=== PATIENT | male | born 1955 | race African-American/Black ===

== ENCOUNTER 2021-12-01 11:16 | Inpatient (IN) | payer OTHER, SELFPAY ==
[2021-12-01] VITALS (10 sets, daily range): BP systolic 100–130; BP diastolic 64–88; PULSE 80–113; RESP 14–31; TEMP 36.4–36.7; O2SAT 98–100; BMI 19.6
--- NOTE | ~2021-12-01 | CT_ITS ---
EXAMINATION: CT lumbar spine wo con DATE: 12/01/2021 12:00 INDICATION: Low back pain post fall TECHNIQUE: Computed tomography (CT) of the lumbar spine was performed without intravenous contrast. A utomated exposure control and iterative reconstruction technique were employed. The dose-length produ ct was 955.31 mGy-cm. COMPARISON: None FINDINGS: 10 degrees lower lumbar levoscoliosis. 3 mm anterolisthesis L4 on L5 and 5 mm retrolisthesis L5 on S1 . Vertebral body heights are normal. No fracture. Severe disc height loss at L5-S1. Moderate disc hei ght loss at L4-L5 and mild disc height loss at T12-L1, L2-L3 and L3-L4. Diffuse patchy sclerosis of t he bones consistent with metastatic disease. Mild bilateral sacroiliac osteoarthritis. The following disc levels are specifically discussed: T12-L1: The disc does not extend beyond the endplate margin. There is mild right and moderate left fa cet joint osteoarthritis. There is no neural foraminal stenosis. There is no central canal stenosis. L1-L2: Disc is mildly bulging. There is left and moderate right facet joint osteoarthritis. There is no neural foraminal stenosis. There is normal central canal stenosis. L2-L3: Disc is bulging. There is mild left and moderate right facet joint osteoarthritis. There is mi ld bilateral neural foraminal stenosis. There is mild central canal stenosis. L3-L4: Disc is bulging. There is hypertrophy of the ligamentum flavum. There is moderate bilateral fa cet joint osteoarthritis. There is mild right and minimal left neural foraminal stenosis. There is mi ld central canal stenosis. L4-L5: Disc is bulging. There is severe bilateral facet joint osteoarthritis. There is moderate right and mild to moderate left neural foraminal stenosis. There is mild central canal stenosis. L5-S1: Disc is bulging. There is mild bilateral facet joint osteoarthritis. There is moderate bilater al neural foraminal stenosis. There is mild central canal stenosis. IMPRESSION: 1. Moderate to severe lumbar spondylosis. No acute osseous abnormality. 2. Extensive patchy sclerosis of the bones consistent with widespread metastatic disease. Reviewed, dictated and finalized at location A. R ASSOCIATE IMPRESSION: 1. Moderate to severe lumbar spondylosis. No acute osseous abnormality. 2. Extensive patchy sclerosis of the bones consistent with widespread metastati c disease.
--- NOTE | ~2021-12-01 | CT_ITS ---
EXAMINATION: CT pelvis wo con DATE: 12/01/2021 12:00 INDICATION: Hip pain post fall from an open window. TECHNIQUE: High resolution computed tomography (CT) of the [place] was performed without intravenous co ntrast. Additional sagittal and coronal reconstructions were performed. Automated exposure control an d iterative reconstruction technique were employed. The dose-length product was 245.24 mGy-cm. COMPARISON: None FINDINGS: No fracture. There are scattered patchy sclerosis throughout the visualized axial and appendicular sk [place]leton consistent with widespread metastatic disease, suspect prostate cancer. Change of prior prosta tectomy. Correlate with clinical history. Mild bilateral hip osteoarthritis. 3 mm anterolisthesis L4 on L5 and 5 mm retrolisthesis L5 on S1. Severe lower lumbar spondylosis. The bladder and visualized p ortion of the bowels are unremarkable. No free fluid in the pelvis. No pathologically enlarged abdomi nal or pelvic lymphadenopathy. IMPRESSION: 1. No acute osseous abnormality. 2. Diffuse patchy sclerosis of the bones suspicious for osseous metastatic disease. There appear to b e changes of prior prostatectomy and would correlate with clinical/surgical history. 3. Severe lower lumbar spondylosis. Reviewed, dictated and finalized at location A. BAILER IMPRESSION: 1. No acute osseous abnormality. 2. Diffuse patchy sclerosis of the bones suspicious for osseous metastatic dise ase. There appear to be changes of prior prostatectomy and would correlate with clinical/surgical history. 3. Severe lower lumbar spondylosis.
--- NOTE | ~2021-12-01 | XR_ITS ---
EXAMINATION: XR chest 2V DATE: 12/01/2021 13:06 INDICATION: Low back pain, possible metastasis TECHNIQUE: AP and lateral views of the chest are obtained. COMPARISON: None available FINDINGS: There is a possible 1.8 cm nodule of the right midlung zone and 1.3 cm nodule of the left l ower lung zone. There is diffuse patchy vertebral body sclerosis. There is no pleural effusion or pne umothorax. The cardiomediastinal silhouette is normal. IMPRESSION: 1. Possible lung nodules, infectious versus malignant. Follow-up with dedicated chest CT is recommend ed. 2. Patchy vertebral body sclerosis, likely metastatic disease. Reviewed, dictated and finalized at location A. CE COPY SELECTOR IMPRESSION: 1. Possible lung nodules, infectious versus malignant. Follow-up with dedicated chest CT is recommended. 2. Patchy vertebral body sclerosis, likely metastatic disease.
--- NOTE | ~2021-12-01 | CT_ITS ---
EXAMINATION: CT diagnostic chest w con DATE: 12/01/2021 15:05 INDICATION: Possible lung nodules reported on December 01, 2021 2 view chest TECHNIQUE: Computed tomography (CT) of the chest was performed with 75 cc Omnipaque 350 intravenous c ontrast. Automated exposure control and iterative reconstruction technique were employed. Exam dose: 149.19 mGy-cm total exam DLP. COMPARISON: December 01, 2021 2 view chest FINDINGS: No pulmonary infiltrate or consolidation or pulmonary mass lesion. Normal heart size. There is coronary artery calcification. No thoracic aortic aneurysm or dissection. No hilar or mediastinal mass lesion or lymphadenopathy. There is extensive patchy osteosclerosis of the axial skeleton, including sternum, ribs, spine, likel y due to extensive prostate cancer diastases Prominent degenerative disc disease in the lower cervical spine. IMPRESSION: Extensive patchy osteosclerotic metastatic disease, likely secondary to prostate carcino ma No pulmonary mass lesion Reviewed, dictated and finalized at Location A. Reviewed, dictated and finalized at location B. DRILL OPERATOR IMPRESSION: Extensive patchy osteosclerotic metastatic disease, likely seconda ry to prostate carcinoma No pulmonary mass lesion
--- NOTE | ~2021-12-01 | NM_ITS ---
NM bone scan whole body INDICATION: Metastatic prostate cancer TECHNIQUE: The patient was injected with 26.6 mCi Tc 99m HDP. Gamma camera images of the region of i nterest and whole body were obtained. COMPARISON: Chest, pelvis and lumbar spine CT dated 12/01/2021 FINDINGS: There are multiple focal areas of abnormal radiotracer uptake in the sternum, multiple bila teral ribs, the lumbar spine, the pelvis, right forearm, right humerus proximally and proximal femurs bilaterally, consistent with osseous metastases. There are multiple symmetric areas of polyarticular joint uptake, consistent with degenerative joint disease. IMPRESSION: 1: Multifocal abnormal radiotracer uptake as described above, consistent with osseous metastases. Reviewed, dictated and finalized at location B. DING CLEANER
[2021-12-01] MEDS: KETOROLAC (*BKC) 60 MG/2 ML VIAL IM (12:09)
[2021-12-01] MEDS: methocarbamoL 500 MG TABLET PO (12:09)
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
[2021-12-01 13:43] LABS: Basophils Percent Auto 0.3 % (0.2-1.2); Hemoglobin 13.3 g/dL (14.0-18.0); Immature Granulocyte Absolute 0.03 K/mm3 (0.00-0.031); Immature Granulocyte Percent A 0.5 % (0-0.5); Lymphocytes Percent Auto 14.3 % (18.3-44.2); Mean Corpuscular HGB Conc 34.1 g/dl (32-36); Mean Corpuscular Hemoglobin 30.2 pg (26-34); Mean Corpuscular Volume 88.6 fl (80-100); Mean Platelet Volume 9.7 fl (7.4-10.4); Monocytes Absolute Auto 0.6 K/mm3 (0.1-0.6); Monocytes Percent Auto 10.1 % (2.6-8.5); Neutrophils Absolute Auto 4.7 K/mm3 (1.3-6.7); Neutrophils Percent Auto 74.8 % (45.5-73.1); Platelet Count Result 179 k/mm3 (150-375); Red Cell Distribution Width 14.3 % (11.5-14.5); White Blood Count 6.3 K/mm3 (4.5-10.0)
[2021-12-01 14:10] LABS: Alanine Aminotransferase 12 U/L (4-50); Alkaline Phosphatase 368 U/L (38-126); Anion Gap 9 mmol/L (8-16); Aspartate Amino Transferase 99 U/L (17-59); Bilirubin,Total 1.3 mg/dL (0.2-1.3); Blood Urea Nitrogen 22 mg/dL (9-20); Carbon Dioxide 25 mmol/L (22-30); Chloride 94 mmol/L (98-107); Estimated CRCL calculation 92 ml/min; Estimated Glomerular Filt Rate > 60; Glucose 117 mg/dL (65-110); Magnesium 1.6 mg/dL (1.6-2.3); Potassium 4.8 mmol/L (3.4-5.0); Sodium 128 mmol/L (137-145)
[2021-12-01 14:19] LABS: Add Urine Microscopic? YES; Appearance Urine Clear (Clear); Bacteria Urine Trace /hpf; Bilirubin Urine Negative (Negative); Blood Urine Negative (Negative); Color Urine Amber (Yellow); Glucose Urine UA Negative (Negative); Ketones Urine 1+ mg/dL (Negative); Leukocyte Esterase Ur Negative LEU/UL (Negative); Mucus Urine Moderate /lpf; Nitrate Urine Negative (Negative); Protein Urine 2+ mg/dL (Negative); RBC Urine 0-2 /hpf (0-2); Specific Grav Ur 1.027 (1.001-1.035); Squamous Epithelial Cell Urine Rare /hpf (Few); WBC Urine 0-3 /hpf
[2021-12-01] MEDS: SODIUM CHLORIDE 0.9% IV 1,000 ML 999 ML IV CONT (15:23)
[2021-12-01] MEDS: SODIUM CHLORIDE 0.9% IV 1,000 ML 125 ML IV CONT (18:17)
--- NOTE | 2021-12-01 18:33 | ADMGEN ---
This patient, Cristopher Nice, was admitted to [facility] Surg Room 333-01. Patient/family oriented to hospital policies and general routines including ID bracelet, bed and alarms, visiting hours, pain management, procedures, bathroom and other care routines, personal items, smoking policy, room service/diet, and visiting hours. Information on how to activate the Rapid Response Team has been discussed. Patient/Family are encouraged to report perceived risks to care and to ask questions if they do not understand what they are told or what they should do.
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
[2021-12-02] MEDS: HYDROmorphone HCL INJ (*CRX) 1 MG/ML SYR IV PUSH ×5 (02:30→21:49)
[2021-12-02] MEDS: SODIUM CHLORIDE 0.9% IV 1,000 ML 125 ML IV CONT ×3 (02:30→19:27)
[2021-12-02 04:04] LABS: Anion Gap 8 mmol/L (8-16); Blood Urea Nitrogen 27 mg/dL (9-20); Calcium 8.4 mg/dL (8.4-10.2); Carbon Dioxide 22 mmol/L (22-30); Chloride 99 mmol/L (98-107); Estimated CRCL calculation 80 ml/min; Estimated Glomerular Filt Rate > 60; Glucose 103 mg/dL (65-110); Potassium 4.5 mmol/L (3.4-5.0); Sodium 129 mmol/L (137-145)
[2021-12-02 06:00] VITALS: BP 106/71; PULSE 98; RESP 16; TEMP 36.6; O2SAT 94
[2021-12-02 07:20] LABS: Basophils Percent Auto 0.2 % (0.2-1.2); Hemoglobin 11.3 g/dL (14.0-18.0); Immature Granulocyte Absolute 0.03 K/mm3 (0.00-0.031); Immature Granulocyte Percent A 0.5 % (0-0.5); Lymphocytes Absolute Auto 1.08 K/mm3 (0.9-3.2); Lymphocytes Percent Auto 19.5 % (18.3-44.2); Mean Corpuscular HGB Conc 33.2 g/dl (32-36); Mean Corpuscular Volume 90.2 fl (80-100); Mean Platelet Volume 9.5 fl (7.4-10.4); Monocytes Absolute Auto 0.7 K/mm3 (0.1-0.6); Monocytes Percent Auto 11.9 % (2.6-8.5); Neutrophils Absolute Auto 3.8 K/mm3 (1.3-6.7); Neutrophils Percent Auto 67.9 % (45.5-73.1); Platelet Count Result 163 k/mm3 (150-375); Red Blood Count 3.77 M/mm3 (4.6-6.20); Red Cell Distribution Width 14.6 % (11.5-14.5); White Blood Count 5.5 K/mm3 (4.5-10.0)
[2021-12-02 08:00] VITALS: BP 116/62; PULSE 85; RESP 20; TEMP 36.6; O2SAT 96
[2021-12-02 09:07] LABS: Alanine Aminotransferase 9 U/L (4-50); Albumin Level 3.4 g/dL (3.5-5.1); Alkaline Phosphatase 264 U/L (38-126); Anion Gap 3 mmol/L (8-16); Aspartate Amino Transferase 56 U/L (17-59); Bilirubin,Total 0.8 mg/dL (0.2-1.3); Blood Urea Nitrogen 19 mg/dL (9-20); Calcium 8.5 mg/dL (8.4-10.2); Carbon Dioxide 25 mmol/L (22-30); Chloride 99 mmol/L (98-107); Estimated CRCL calculation 92 ml/min; Estimated Glomerular Filt Rate > 60; Glucose 110 mg/dL (65-110); Lactate Dehydrogenase 1265 U/L (313-618); Lipase 21 U/L (23-300); Magnesium 1.6 mg/dL (1.6-2.3); Potassium 4.4 mmol/L (3.4-5.0); Sodium 127 mmol/L (137-145)
[2021-12-02 09:20] LABS: CRP 30.4 mg/dL (<1.0)
[2021-12-02 10:58] LABS: Ferritin > 2000.00 ng/mL (11.1-264)
--- NOTE | 2021-12-02 13:28 | PM.IMPN ---
Progress Note: A&P Assessment and Plan (1) Acute hyponatremia: Code(s): E87.1 - Hypo-osmolality and hyponatremia Status: Acute Assessment and Plan: Continue with gentle IV fluid resuscitation and encourage appetite Patient currently has a poor appetite and reports loss of weight, approximately 40 lb Repeat basic metabolic panel in the morning hyponatremia may be related to his cancer diagnosis? Consult registered dietitian for further evaluation (2) Metastatic disease: Qualifiers: Area of secondary neoplastic involvement: bone Qualified Code(s): C79.51 - Secondary malignant neoplasm of bone Code(s): C79.9 - Secondary malignant neoplasm of unspecified site Status: Acute Assessment and Plan: Oncology has been consulted, Dr. Spears-appreciate assistance and recommendations Continue with IV and oral pain medication. (3) Back pain: Qualifiers: Back pain laterality: bilateral Back pain location: low back pain Chronicity: acute Sciatica presence: without sciatica Qualified Code(s): M54.50 - Low back pain, unspecified Code(s): M54.9 - Dorsalgia, unspecified Status: Acute Assessment and Plan: Continue with pain medication Discussed nonpharmacological pain management (4) Marijuana abuse: Code(s): F12.10 - Cannabis abuse, uncomplicated Status: Acute Assessment and Plan: Discussed marijuana usage, patient currently smokes daily (5) Physical debility: Code(s): R53.81 - Other malaise Status: Acute Assessment and Plan: PT/OT eval and treat Patient reports increasing generalized weakness. Subjective Date/time seen: 12/02/21 13:28 Patient was evaluated this morning at bedside. He appears to be developmentally delayed or have poor understanding of current diagnosis. Family is involved in his care. Patient reports he lives at home alone. Patient continues on IV fluids, pain management and pending oncology services. Consult registered dietitian to evaluate the patient's nutritional status. Patient reports that he has lost 40 lb within the past 6 months. Patient also reports marijuana usage daily, discussed usage. Patient denies any chest pain, shortness of breath. He does report feeling weak, therefore PT/OT was ordered to eval and treat. No significant events overnight. Review of Systems Review of Systems: All systems reviewed & are unremarkable except as noted in HPI and below Exam Narrative: General: Pt is alert awake and oriented x3, no acute distress, cachectic appearance Lungs/Chest: Trachea central Clear BS B/L No respiratory distress or use of accessory muscle, Cardiac: RRR. Normal S1 S2. No murmurs Circulation: Pedal pulses are intact and symmetrical. Abdomen: Normal bowel sounds. Soft. NT. ND. Extremities: No clubbing, cyanosis Warm. no edema in lower extremities, atraumatic, strength 4/5 in all extremities Neurologic: Follows commands. Moves all 4 extremities PERRL AO x3 Skin: No Rash or lesions Objective Data Vital Signs Vital Signs: Vital Signs - 24 hr 12/01/21 15:13 12/01/21 16:16 12/01/21 16:31 Temperature Pulse Rate 96 95 95 Respiratory Rate 18 14 24 H Blood Pressure 117/79 119/79 105/80 Pulse Oximetry 98 98 98 12/01/21 17:01 12/01/21 17:56 12/01/21 18:41 Temperature 97.7 F Pulse Rate 95 93 86 Respiratory Rate 31 H 18 18 Blood Pressure 109/79 109/72 117/77 Pulse Oximetry 99 99 100 12/01/21 22:00 12/02/21 06:00 12/02/21 08:00 Temperature 97.6 F 97.9 F 97.8 F Pulse Rate 80 98 85 Respiratory Rate 14 16 20 Blood Pressure 100/64 106/71 116/62 Pulse Oximetry 99 94 96 Intake/Output Intake/Output: Intake & Output 11/29/21 11/30/21 12/01/21 12/02/21 23:59 23:59 23:59 23:59 Intake Total 1000 2440 Balance 1000 2440 Meds/Results Medications: Active Medications Generic Name Dose Route Start Last Admin Trade Name Freq PRN Reason Stop Dose Ad
[2021-12-02 14:48] VITALS: O2SAT 96
[2021-12-02 15:06] VITALS: BMI 19.6
[2021-12-02 15:11] LABS: Basophils Percent Auto 0.2 % (0.2-1.2); Hematocrit 33.1 % (42.0-52.0); Hemoglobin 11.1 g/dL (14.0-18.0); Immature Granulocyte Absolute 0.04 K/mm3 (0.00-0.031); Immature Granulocyte Percent A 0.6 % (0-0.5); Lymphocytes Absolute Auto 0.91 K/mm3 (0.9-3.2); Lymphocytes Percent Auto 14.1 % (18.3-44.2); Mean Corpuscular HGB Conc 33.5 g/dl (32-36); Mean Corpuscular Hemoglobin 29.9 pg (26-34); Mean Corpuscular Volume 89.2 fl (80-100); Mean Platelet Volume 9.7 fl (7.4-10.4); Monocytes Absolute Auto 0.8 K/mm3 (0.1-0.6); Monocytes Percent Auto 12.1 % (2.6-8.5); Neutrophils Absolute Auto 4.7 K/mm3 (1.3-6.7); Platelet Count Result 174 k/mm3 (150-375); Red Blood Count 3.71 M/mm3 (4.6-6.20); Red Cell Distribution Width 14.5 % (11.5-14.5); White Blood Count 6.4 K/mm3 (4.5-10.0)
[2021-12-02 15:32] LABS: Anion Gap 8 mmol/L (8-16); Blood Urea Nitrogen 13 mg/dL (9-20); Calcium 8.4 mg/dL (8.4-10.2); Carbon Dioxide 22 mmol/L (22-30); Chloride 99 mmol/L (98-107); Estimated CRCL calculation 108 ml/min; Estimated Glomerular Filt Rate > 60; Glucose 112 mg/dL (65-110); Potassium 4.2 mmol/L (3.4-5.0); Sodium 129 mmol/L (137-145)
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
[2021-12-02 19:40] LABS: Sodium Urine Random 123 meq/L
[2021-12-02 20:25] LABS: Prostate Specific Antigen > 100.0 ng/mL (< OR = 4.0)
[2021-12-02 20:55] VITALS: PULSE 93; O2SAT 97
[2021-12-02 22:00] VITALS: BP 107/65; PULSE 93; RESP 20; TEMP 36.4; O2SAT 98
[2021-12-03] MEDS: HYDROmorphone HCL INJ (*CRX) 1 MG/ML SYR IV PUSH ×4 (02:23→19:59)
[2021-12-03] MEDS: SODIUM CHLORIDE 0.9% IV 1,000 ML 125 ML IV CONT ×3 (05:05→22:06)
[2021-12-03 06:00] VITALS: BP 94/61; PULSE 82; RESP 20; TEMP 36; O2SAT 98
[2021-12-03 07:21] LABS: Magnesium 1.7 mg/dL (1.6-2.3); Phosphorus 3.1 mg/dL (2.5-4.5)
[2021-12-03 08:00] VITALS: PULSE 94; RESP 18; O2SAT 97
[2021-12-03] MEDS: HYDROcodone/acetaminophen (*CRX) 5-325 MG TABLET 1 TAB PO ×3 (10:50→22:05)
--- NOTE | 2021-12-03 11:56 | PM.IMPN ---
Progress Note: A&P Assessment and Plan (1) Acute hyponatremia: Code(s): E87.1 - Hypo-osmolality and hyponatremia Status: Acute Assessment and Plan: Continue with gentle IV fluid resuscitation and encourage appetite Patient currently has a poor appetite and reports loss of weight, approximately 40 lb Repeat basic metabolic panel in the morning hyponatremia may be related to his cancer diagnosis? Consult registered dietitian for further evaluation (2) Metastatic disease: Qualifiers: Area of secondary neoplastic involvement: bone Qualified Code(s): C79.51 - Secondary malignant neoplasm of bone Code(s): C79.9 - Secondary malignant neoplasm of unspecified site Status: Acute Assessment and Plan: Oncology has been consulted, Dr. Spears-appreciate assistance and recommendations Continue with IV and oral pain medication. (3) Back pain: Qualifiers: Back pain laterality: bilateral Back pain location: low back pain Chronicity: acute Sciatica presence: without sciatica Qualified Code(s): M54.50 - Low back pain, unspecified Code(s): M54.9 - Dorsalgia, unspecified Status: Acute Assessment and Plan: Continue with pain medication Discussed nonpharmacological pain management (4) Marijuana abuse: Code(s): F12.10 - Cannabis abuse, uncomplicated Status: Acute Assessment and Plan: Discussed marijuana usage, patient currently smokes daily (5) Physical debility: Code(s): R53.81 - Other malaise Status: Acute Assessment and Plan: PT/OT eval and treat Patient reports increasing generalized weakness. Subjective Date/time seen: 12/03/21 11:56 patient was evaluated this morning. Eating. BN significant amount of pain. Medication was due for Dilaudid. Added [place] to help decide pain. Patient reported he spoke to Oncology yesterday and agreeable to plan of care and follow-up as an outpatient. During this hospitalization his main concern is pain management. Patient reports he slept okay last night. No significant events overnight reported by the RN. Reviewed Oncology consultation. Review of Systems Review of Systems: All systems reviewed & are unremarkable except as noted in HPI and below Exam Narrative: General: Pt is alert awake and oriented x3, no acute distress, cachectic appearance Lungs/Chest: Trachea central Clear BS B/L No respiratory distress or use of accessory muscle, Cardiac: RRR. Normal S1 S2. No murmurs Circulation: Pedal pulses are intact and symmetrical. Abdomen: Normal bowel sounds. Soft. NT. ND. Extremities: No clubbing, cyanosis Warm. no edema in lower extremities, atraumatic, strength 4/5 in all extremities Neurologic: Follows commands. Moves all 4 extremities PERRL AO x3 Skin: No Rash or lesions Objective Data Vital Signs Vital Signs: Vital Signs - 24 hr 12/02/21 14:48 12/02/21 20:55 12/02/21 22:00 Temperature 97.5 F L Pulse Rate 93 93 Respiratory Rate 20 Blood Pressure 107/65 Pulse Oximetry 96 97 98 12/03/21 06:00 Temperature 96.8 F L Pulse Rate 82 Respiratory Rate 20 Blood Pressure 94/61 L Pulse Oximetry 98 Intake/Output Intake/Output: Intake & Output 11/30/21 12/01/21 12/02/21 12/03/21 23:59 23:59 23:59 23:59 Intake Total 1000 3440 1750 Output Total 800 Balance 1000 3440 950 Meds/Results Medications: Active Medications Generic Name Dose Route Start Last Admin Trade Name Freq PRN Reason Stop Dose Admin Acetaminophen 650 mg 12/03/21 09:36 Acetaminophen 325 Mg Tablet PO Q4H PRN Mild Pain (1-3) or Fever Hydrocodone Bitart/Acetaminophen 1 tab 12/03/21 09:35 12/03/21 10:50 Hydrocodone/Acetaminophen (*Crx) 5-325 Mg Tablet PO 1 tab Q4H PRN Administration Pain Rated 4-6 Hydromorphone HCl 1 mg 12/01/21 16:20 12/03/21 06:49 Hydromorphone Hcl Inj (*Crx) 1 Mg/Ml Syr IV PUSH 1 mg Q4H PRN Administration
--- NOTE | 2021-12-03 12:58 | PCPTNOTE ---
Attempted PT evaluation this date however pt declined. He reports that he is having a lot of pain, RN was notified. Will attempt at a later date/time.
[2021-12-03 13:10] VITALS: BP 104/62; PULSE 94; RESP 18; TEMP 36.3; O2SAT 97
--- NOTE | 2021-12-03 14:50 | PCOTNOTE ---
Attempted to see patient for OT evaluation. Patient refuses any/all activity at this time due to being in pain. Will continue to attempt.
[2021-12-03 22:00] VITALS: BP 112/75; PULSE 95; RESP 18; TEMP 36.9; O2SAT 100
[2021-12-04] MEDS: HYDROmorphone HCL INJ (*CRX) 1 MG/ML SYR IV PUSH ×4 (01:07→20:13)
[2021-12-04] MEDS: HYDROcodone/acetaminophen (*CRX) 5-325 MG TABLET 1 TAB PO ×2 (03:19→10:17)
[2021-12-04 06:00] VITALS: BP 94/60; PULSE 78; RESP 18; TEMP 36.5; O2SAT 100
[2021-12-04 08:00] VITALS: PULSE 78; RESP 18; O2SAT 100
--- NOTE | 2021-12-04 12:09 | PM.IMPN ---
Progress Note: A&P Assessment and Plan (1) Acute hyponatremia: Code(s): E87.1 - Hypo-osmolality and hyponatremia Status: Acute Assessment and Plan: Continue with gentle IV fluid resuscitation and encourage appetite Patient currently has a poor appetite and reports loss of weight, approximately 40 lb Repeat basic metabolic panel in the morning hyponatremia may be related to his cancer diagnosis? Consult registered dietitian for further evaluation (2) Metastatic disease: Qualifiers: Area of secondary neoplastic involvement: bone Qualified Code(s): C79.51 - Secondary malignant neoplasm of bone Code(s): C79.9 - Secondary malignant neoplasm of unspecified site Status: Acute Assessment and Plan: Oncology has been consulted, Dr. Spears-appreciate assistance and recommendations Continue with IV and oral pain medication. Pending Nuc med bone scan on Sunday the . (3) Back pain: Qualifiers: Back pain laterality: bilateral Back pain location: low back pain Chronicity: acute Sciatica presence: without sciatica Qualified Code(s): M54.50 - Low back pain, unspecified Code(s): M54.9 - Dorsalgia, unspecified Status: Acute Assessment and Plan: Continue with pain medication Discussed nonpharmacological pain management (4) Marijuana abuse: Code(s): F12.10 - Cannabis abuse, uncomplicated Status: Acute Assessment and Plan: Discussed marijuana usage, patient currently smokes daily (5) Physical debility: Code(s): R53.81 - Other malaise Status: Acute Assessment and Plan: PT/OT eval and treat Patient reports increasing generalized weakness. Subjective Date/time seen: 12/04/21 12:09 Brief encounter with the patient this morning. He reports continued pain. We will attempt to increase medications. Pending bone scan tomorrow with Oncology. No acute events overnight reported by the RN. Patient continues to receive Dilaudid and [place]. Patient may benefit from hospice consult Review of Systems Review of Systems: All systems reviewed & are unremarkable except as noted in HPI and below Exam Narrative: General: Pt is alert awake and oriented x3, no acute distress, cachectic appearance Lungs/Chest: Trachea central Clear BS B/L No respiratory distress or use of accessory muscle, Cardiac: RRR. Normal S1 S2. No murmurs Circulation: Pedal pulses are intact and symmetrical. Abdomen: Normal bowel sounds. Soft. NT. ND. Extremities: No clubbing, cyanosis Warm. no edema in lower extremities, atraumatic, strength 4/5 in all extremities, mild pain to palpation to lumbar region Neurologic: Follows commands. Moves all 4 extremities PERRL AO x3 Skin: No Rash or lesions Objective Data Vital Signs Vital Signs: Vital Signs - 24 hr 12/03/21 13:10 12/03/21 22:00 12/04/21 06:00 Temperature 97.4 F L 98.4 F 97.7 F Pulse Rate 94 95 78 Respiratory Rate 18 18 18 Blood Pressure 104/62 112/75 94/60 L Pulse Oximetry 97 100 100 12/04/21 08:00 Temperature Pulse Rate 78 Respiratory Rate 18 Blood Pressure Pulse Oximetry 100 Intake/Output Intake/Output: Intake & Output 12/01/21 12/02/21 12/03/21 12/04/21 23:59 23:59 23:59 23:59 Intake Total 1000 3440 4690 550 Output Total 2050 750 Balance 1000 3440 2640 -200 Meds/Results Medications: Active Medications Generic Name Dose Route Start Last Admin Trade Name Freq PRN Reason Stop Dose Admin Acetaminophen 650 mg 12/03/21 09:36 Acetaminophen 325 Mg Tablet PO Q4H PRN Mild Pain (1-3) or Fever Hydrocodone Bitart/Acetaminophen 1 tab 12/03/21 09:35 12/04/21 10:17 Hydrocodone/Acetaminophen (*Crx) 5-325 Mg Tablet PO 1 tab Q4H PRN Administration Pain Rated 4-6 Hydromorphone HCl 1 mg 12/01/21 16:20 12/04/21 07:18 Hydromorphone Hcl Inj (*Crx) 1 Mg/Ml Syr IV PUSH 1 mg Q4H PRN Administration Pain Rated 7-10 Sodium Chlorid
[2021-12-04] MEDS: SODIUM CHLORIDE 0.9% IV 1,000 ML 125 ML IV CONT (12:51)
[2021-12-04 13:00] LABS: Hematocrit 33.5 % (42.0-52.0); Hemoglobin 10.7 g/dL (14.0-18.0); Mean Corpuscular HGB Conc 31.9 g/dl (32-36); Mean Corpuscular Hemoglobin 30.2 pg (26-34); Mean Corpuscular Volume 94.6 fl (80-100); Mean Platelet Volume 9.7 fl (7.4-10.4); Platelet Count Result 190 k/mm3 (150-375); Red Blood Count 3.54 M/mm3 (4.6-6.20); Red Cell Distribution Width 14.6 % (11.5-14.5); White Blood Count 5.8 K/mm3 (4.5-10.0)
[2021-12-04 13:14] LABS: Anion Gap 8 mmol/L (8-16); Blood Urea Nitrogen 7 mg/dL (9-20); Calcium 8.6 mg/dL (8.4-10.2); Carbon Dioxide 23 mmol/L (22-30); Chloride 101 mmol/L (98-107); Estimated CRCL calculation 108 ml/min; Estimated Glomerular Filt Rate > 60; Glucose 131 mg/dL (65-110); Potassium 3.4 mmol/L (3.4-5.0); Sodium 132 mmol/L (137-145)
[2021-12-04 14:00] VITALS: BP 119/68; PULSE 98; RESP 16; TEMP 35.9; O2SAT 100
[2021-12-04] MEDS: HYDROcodone/acetaminophen (*CRX) 10-325 MG TABLET 1 TAB PO ×2 (16:55→22:33)
[2021-12-04 20:00] VITALS: PULSE 98; RESP 16; O2SAT 100
[2021-12-04 22:00] VITALS: BP 123/78; PULSE 91; RESP 18; TEMP 37.4; O2SAT 100
[2021-12-05] MEDS: HYDROcodone/acetaminophen (*CRX) 10-325 MG TABLET 1 TAB PO ×2 (02:17→11:19)
[2021-12-05 05:02] LABS: Osmolality, Urine 445 mOsm/kg (50-1200)
[2021-12-05 06:00] VITALS: BP 109/65; PULSE 87; RESP 18; TEMP 36.9; O2SAT 100
[2021-12-05 06:26] LABS: Basophils Percent Auto 0.3 % (0.2-1.2); Eosinophils Percent Auto 0.3 % (0-4.4); Hematocrit 31.2 % (42.0-52.0); Hemoglobin 10.2 g/dL (14.0-18.0); Immature Granulocyte Absolute 0.03 K/mm3 (0.00-0.031); Immature Granulocyte Percent A 0.5 % (0-0.5); Lymphocytes Absolute Auto 1.33 K/mm3 (0.9-3.2); Lymphocytes Percent Auto 23.2 % (18.3-44.2); Mean Corpuscular HGB Conc 32.7 g/dl (32-36); Mean Corpuscular Hemoglobin 29.9 pg (26-34); Mean Corpuscular Volume 91.5 fl (80-100); Mean Platelet Volume 9.2 fl (7.4-10.4); Monocytes Absolute Auto 0.6 K/mm3 (0.1-0.6); Monocytes Percent Auto 9.6 % (2.6-8.5); Neutrophils Absolute Auto 3.8 K/mm3 (1.3-6.7); Neutrophils Percent Auto 66.1 % (45.5-73.1); Platelet Count Result 219 k/mm3 (150-375); Red Blood Count 3.41 M/mm3 (4.6-6.20); Red Cell Distribution Width 14.6 % (11.5-14.5); White Blood Count 5.7 K/mm3 (4.5-10.0)
[2021-12-05 06:39] LABS: Alanine Aminotransferase 12 U/L (4-50); Albumin Level 2.9 g/dL (3.5-5.1); Alkaline Phosphatase 161 U/L (38-126); Anion Gap 5 mmol/L (8-16); Aspartate Amino Transferase 29 U/L (17-59); Bilirubin,Total 0.6 mg/dL (0.2-1.3); Blood Urea Nitrogen 5 mg/dL (9-20); Calcium 8.2 mg/dL (8.4-10.2); Carbon Dioxide 25 mmol/L (22-30); Chloride 101 mmol/L (98-107); Estimated CRCL calculation 131 ml/min; Estimated Glomerular Filt Rate > 60; Glucose 113 mg/dL (65-110); Magnesium 1.4 mg/dL (1.6-2.3); Phosphorus 3.3 mg/dL (2.5-4.5); Potassium 3.6 mmol/L (3.4-5.0); Sodium 131 mmol/L (137-145)
[2021-12-05 08:00] VITALS: PULSE 87; RESP 18; O2SAT 100
[2021-12-05] MEDS: HYDROmorphone HCL INJ (*CRX) 1 MG/ML SYR IV PUSH (08:11)
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
[2021-12-05] MEDS: MAGNESIUM SULF 4 GM/WATER100ML 4 GM/100 ML BAG IVPB (12:22)
--- NOTE | 2021-12-05 12:29 | PCNFU ---
Nutrition Follow-Up Complete: Severe malnutrition in the context of chronic illness related to metastatic disease as evidenced by 22% weight loss in 1 month, severe wasting of subcutaneous fat (orbital fat pads, buccal fat pads, triceps) and severe muscle mass loss (wasting of temporalis muscle, trapezius muscle, deltoid mucle, and interosseous muscle) Goal: Pt to meet 75% of estimated nutritional needs patient is progressing towards goal. No new goal at this time. Pt current nutrition is a regular diet. Last recorded weight is 63.9 kg. Recommend re-weighing pt. prior to discharge. Bowel Motility: +BM 12/03/2021 Labs Reviewed: Hgb 10.2, Hct 31.2, Alb 2.9, Na 131, BUN 5, Cr 0.40, Glu 113 Meds Noted: Casodex, [place], Zofran, Dilaudid Skin: No skin break down at this time. WNL. Additional Notes: Pt was diagnosed with malnutrition. Pt. has severe wasting of subcutaneous fat and severe muscle mass loss. He is receiving compact TID providing an additional 220 calories and 9 grams of protein as well as frozen nutritional treat BID providing an additional 300 calories and 9 grams of protein in addition to ordering three meals per day. Pt. has a poor appetite for the most part refusing three meals and eating anywhere from 10-100% of meals but does his best to eat at meal times. May be beneficial to start an appetite stimulant if intake does not increase. Will monitor labs, medication, wt, and reported intake every 3 days
--- NOTE | 2021-12-05 13:01 | WPDONCPN ---
Progress Note: A/P - Additional Plan Metastatic prostate cancer with bone involvement. Patient is status post prostatectomy 5 years ago. Bone scan finding showed multifocal abnormal radiotracer uptake consistent with bone metastasis involving multiple bilateral ribs, lumbar spine, pelvis, right forearm: Right humerus and femur bilaterally. PSA came back elevated more than 100. We will start him on Casodex 50 mg daily and will start Lupron as an outpatient. Patient will follow-up with us as an outpatient. Bone metastasis. Patient will be referred to Radiation therapy based on his symptoms. - Time Spent With Patient Total time spent is greater than 50% in coordination of care (as documented) at patient's floor/unit and/or counseling patient: 15 - 25 minutes Subjective Interval history: Metastatic prostate cancer Review of Systems - Review of Systems Patient is more awake and alert today. He has been complaining of generalized pain. Denies any bleeding including melena hematochezia. No fevers and chills. No other new complaints. - Neurologic Reports system reviewed and no additional complaints, except as documented, Reports hearing normal, Denies focal weakness, Denies numbness, Denies weakness Exam Vital signs: Temp Pulse Resp BP Pulse Ox 36.9 C 87 18 109/65 100 12/05/21 06:00 12/05/21 08:00 12/05/21 08:00 12/05/21 06:00 12/05/21 08:00 Narrative: Lungs are clear to auscultation bilaterally Cardiovascular regular rate rhythm no murmurs Abdomen soft nontender nondistended bowel sounds are positive Extremities no edema PN: Objective Data - Labs CBC & Chem 7: 12/05/21 06:11 12/05/21 06:11 Labs: Laboratory Results - last 24 hr 12/02/21 12/04/21 12/04/21 17:19 12:53 12:53 WBC 5.8 RBC 3.54 L Hgb 10.7 L Hct 33.5 L MCV 94.6 D MCH 30.2 MCHC 31.9 L RDW 14.6 H Plt Count 190 MPV 9.7 Immature Gran % (Auto) Neut % (Auto) Lymph % (Auto) Winston % (Auto) Eos % (Auto) Baso % (Auto) Lymph # (Auto) Winston # (Auto) Eos # (Auto) Baso # (Auto) Abs Immat Gran (auto) Absolute Neuts (auto) Absolute Nucleated RBC Nucleated RBC % Sodium 132 L Potassium 3.4 Chloride 101 Carbon Dioxide 23 Anion Gap 8 BUN 7 L D Creatinine 0.50 L Estim Creat Clear Calc 108 Estimated GFR > 60 Glucose 131 H Calcium 8.6 Phosphorus Magnesium Total Bilirubin AST ALT Alkaline Phosphatase Total Protein Albumin Urine Osmolality 445 12/05/21 12/05/21 06:11 06:11 WBC 5.7 RBC 3.41 L Hgb 10.2 L Hct 31.2 L MCV 91.5 MCH 29.9 MCHC 32.7 RDW 14.6 H Plt Count 219 MPV 9.2 Immature Gran % (Auto) 0.5 Neut % (Auto) 66.1 Lymph % (Auto) 23.2 Winston % (Auto) 9.6 H Eos % (Auto) 0.3 Baso % (Auto) 0.3 Lymph # (Auto) 1.33 Winston # (Auto) 0.6 Eos # (Auto) 0.0 Baso # (Auto) 0.0 Abs Immat Gran (auto) 0.03 Absolute Neuts (auto) 3.8 Absolute Nucleated RBC 0.0 Nucleated RBC % 0.0 Sodium 131 L Potassium 3.6 Chloride 101 Carbon Dioxide 25 Anion Gap 5 L BUN 5 L Creatinine 0.40 L Estim Creat Clear Calc 131 Estimated GFR > 60 Glucose 113 H Calcium 8.2 L Phosphorus 3.3 Magnesium 1.4 L Total Bilirubin 0.6 AST 29 ALT 12 Alkaline Phosphatase 161 H Total Protein 6.0 L Albumin 2.9 L Urine Osmolality
[2021-12-05 14:00] VITALS: BP 124/46; PULSE 94; RESP 20; TEMP 36.3; O2SAT 94
[2021-12-05] MEDS: fentaNYL (*CRX) 25 MCG PATCH TRANSDERM (14:15)
[2021-12-05] MEDS: BICALUTAMIDE (*CHEMO) 50 MG TABLET PO (14:15)
[2021-12-05] MEDS: oxyCODONE/ACETAMINOPHEN (*CRX) 5-325 MG TABLET 1 TABLET PO ×2 (14:15→20:03)
[2021-12-05 16:38] LABS: Glucose Point of Care 156 mg/dl (65-105)
[2021-12-05 21:47] VITALS: BP 109/66; PULSE 105; RESP 16; TEMP 37.8; O2SAT 99
[2021-12-06] MEDS: oxyCODONE/ACETAMINOPHEN (*CRX) 5-325 MG TABLET 1 TABLET PO ×3 (00:11→10:44)
[2021-12-06 03:01] VITALS: O2SAT 96
[2021-12-06 06:00] VITALS: BP 122/79; PULSE 82; RESP 16; TEMP 36.3; O2SAT 97
[2021-12-06 08:41] LABS: Basophils Percent Auto 0.6 % (0.2-1.2); Eosinophils Percent Auto 0.3 % (0-4.4); Hematocrit 33.4 % (42.0-52.0); Immature Granulocyte Percent A 1.6 % (0-0.5); Lymphocytes Absolute Auto 1.53 K/mm3 (0.9-3.2); Lymphocytes Percent Auto 24.8 % (18.3-44.2); Mean Corpuscular HGB Conc 32.9 g/dl (32-36); Mean Corpuscular Hemoglobin 29.6 pg (26-34); Mean Corpuscular Volume 89.8 fl (80-100); Mean Platelet Volume 9.1 fl (7.4-10.4); Monocytes Absolute Auto 0.6 K/mm3 (0.1-0.6); Monocytes Percent Auto 9.4 % (2.6-8.5); Neutrophils Absolute Auto 3.9 K/mm3 (1.3-6.7); Neutrophils Percent Auto 63.3 % (45.5-73.1); Platelet Count Result 256 k/mm3 (150-375); Red Blood Count 3.72 M/mm3 (4.6-6.20); Red Cell Distribution Width 14.6 % (11.5-14.5); White Blood Count 6.2 K/mm3 (4.5-10.0)
[2021-12-06 09:01] LABS: Alanine Aminotransferase 14 U/L (4-50); Albumin Level 3.2 g/dL (3.5-5.1); Alkaline Phosphatase 172 U/L (38-126); Anion Gap 6 mmol/L (8-16); Aspartate Amino Transferase 29 U/L (17-59); Bilirubin,Total 0.6 mg/dL (0.2-1.3); Blood Urea Nitrogen 9 mg/dL (9-20); Calcium 8.9 mg/dL (8.4-10.2); Carbon Dioxide 27 mmol/L (22-30); Chloride 101 mmol/L (98-107); Estimated CRCL calculation 108 ml/min; Estimated Glomerular Filt Rate > 60; Glucose 140 mg/dL (65-110); Magnesium 1.4 mg/dL (1.6-2.3); Sodium 134 mmol/L (137-145)
[2021-12-06] MEDS: BICALUTAMIDE (*CHEMO) 50 MG TABLET PO (09:03)
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
--- NOTE | 2022-02-21 09:55 | PC.NURSE ---
Brianda spoke with next of kin via telephone; will talk to patient and call back on 02/04/22. No phone call returned. Will dispose bottle of Calcium.
== END 2021-12-06 13:00 | disposition home or self-care (01) | DRG 343 ==
LOC: ANHED 16:20 → ANH3MEDSUR 17:16
PROVIDERS: Internal Medicine Hematology & Oncology; Nurse Practitioner; Nurse Practitioner Family; Admitting Provider Internal Medicine; Emergency Provider Nurse Practitioner Adult Health; PCP Internal Medicine; Visit Provider Nurse Practitioner
DX: C79.51 Secondary malignant neoplasm of bone (principal); E87.1 Hypo-osmolality and hyponatremia; M54.50 Low back pain, unspecified; F12.10 Cannabis abuse, uncomplicated; Z23 Encounter for immunization; Z85.46 Personal history of malignant neoplasm of prostate; Z85.53 Personal history of malignant neoplasm of renal pelvis; Z90.49 Acquired absence of other specified parts of digestive tract
CPT/HCPCS: 36415; 71046; 71260; 72131; 72192; 78306; 80048; 80053; 81001; 82728; 82948; 83615; 83690; 83735; 83935; 84100; 84153; 84300; 84443; 85025; 85027; 86140; 90471; 90653; 96361; 96372; 96374; 96375; 96376; 97161; 97165; 99285; A9270; A9561; G0008; G0378; G0379; J0131; J1170; J1885; J3475; J7030; Q9967

== ENCOUNTER 2022-09-01 02:22 | Inpatient (IN) | payer OTHER, SELFPAY ==
[2022-09-01] VITALS (21 sets, daily range): BP systolic 89–117; BP diastolic 66–86; PULSE 97–106; RESP 16–23; TEMP 36.7–37.1; O2SAT 95–100; BMI 19.2; BMI 20.5
--- NOTE | ~2022-09-01 | CT_ITS ---
EXAMINATION: CT chest abdomen pelvis w con DATE: 09/01/2022 06:57 INDICATION: General body pain. Metastatic cancer. TECHNIQUE: Computed tomography (CT) of the chest, abdomen, and pelvis was performed with 100 mL Omnip aque 350 intravenous contrast. Automated exposure control and iterative reconstruction technique were employed. The dose-length product was 519.67 mGy-cm. COMPARISON: Chest CT 12/01/2021, pelvis CT 12/01/2021 FINDINGS: CHEST CT: There is mild scarring at right lung apex. There is mild atelectasis bilaterally. No pleural effusion . The heart size is normal. There are coronary artery calcifications. There is a small pericardial ef fusion. There is widespread sclerosis involving all bones. There is severe cervical spondylosis and m oderate thoracic spondylosis. ABDOMEN/PELVIS CT: The liver, gallbladder, spleen, pancreas, adrenal glands, and kidneys are normal. There are no dilate d loops of bowel. The appendix is not visualized. There is mild right retrocrural and right external iliac lymphadenopathy. For example, a right external iliac node measures 15 x 10 mm. There is widespr ead sclerosis involving all bones. There is severe lumbar spondylosis. IMPRESSION: 1. Worsened widespread sclerosis involving all bones, consistent with metastatic disease. 2. Mild right retrocrural and right external iliac lymphadenopathy, worsened from 12/01/2021, consiste nt with metastatic disease. 3. Small pericardial effusion. Reviewed, dictated and finalized at location A. [employer] IMPRESSION: 1. Worsened widespread sclerosis involving all bones, consistent with metastati c disease. 2. Mild right retrocrural and right external iliac lymphadenopathy, worsened fr om 12/01/2021, consistent with metastatic disease. 3. Small pericardial effusion.
--- NOTE | 2022-09-01 04:01 | ECG_ITS ---
Measurements Intervals [place] Rate: 108 P: 69 WV: 132 QRS: 2 QRSD: 84 T: 50 QT: 338 QTc: 453 Interpretive Statements SINUS TACHYCARDIA DELAYED PRECORDIAL R/S TRANSITION BASELINE ARTIFACT- I, III, AVR, AVL ABNORMAL ECG NO PREVIOUS ECG AVAILABLE FOR COMPARISON Electronically Signed On 09-01-2022 16:25:37 [employer] by Dante Cary D.O.
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
[2022-09-01 07:09] LABS: Basophils Percent Auto 0.4 % (0.2-1.2); Hematocrit 24.3 % (42.0-52.0); Immature Granulocyte Absolute 0.06 K/mm3 (0.00-0.031); Immature Granulocyte Percent A 1.1 % (0-0.5); Lymphocytes Absolute Auto 1.07 K/mm3 (0.9-3.2); Mean Corpuscular HGB Conc 32.9 g/dl (32-36); Mean Corpuscular Hemoglobin 29.3 pg (26-34); Mean Platelet Volume 10.8 fl (7.4-10.4); Monocytes Absolute Auto 0.4 K/mm3 (0.1-0.6); Monocytes Percent Auto 7.4 % (2.6-8.5); Neutrophils Absolute Auto 4.1 K/mm3 (1.3-6.7); Neutrophils Percent Auto 72.1 % (45.5-73.1); Platelet Count Result 192 k/mm3 (150-375); Red Blood Count 2.73 M/mm3 (4.6-6.20); Red Cell Distribution Width 18.4 % (11.5-14.5); White Blood Count 5.6 K/mm3 (4.5-10.0)
[2022-09-01 07:10] LABS: Lactic Acid 1.1 mmol/L (0.7-2.0)
--- NOTE | 2022-09-01 07:11 | PC.NURSE ---
Yovani [phone]
[2022-09-01 07:14] LABS: Alanine Aminotransferase 9 U/L (6-50); Albumin Level 3.8 g/dL (3.5-5.1); Alkaline Phosphatase 311 U/L (38-126); Anion Gap 12 mmol/L (8-16); Aspartate Amino Transferase 118 U/L (17-59); Blood Urea Nitrogen 11 mg/dL (9-20); Calcium 8.8 mg/dL (8.4-10.2); Carbon Dioxide 23 mmol/L (22-30); Chloride 92 mmol/L (98-107); Estimated Glomerular Filt Rate > 60; Glucose 103 mg/dL (65-110); Magnesium 1.5 mg/dL (1.6-2.3); Potassium 4.8 mmol/L (3.4-5.0); Sodium 127 mmol/L (137-145); Troponin I 0.014 ng/mL (0.000-0.034)
[2022-09-01 07:17] LABS: SARS-CoV-2 RNA PCR Negative
[2022-09-01] MEDS: MAGNESIUM SULF 2 GM/WATER 50ML 2 GM/50 ML BAG IVPB (08:06)
[2022-09-01] MEDS: HYDROmorphone HCL INJ (*CRX) 1 MG/ML SYR 0.5 MG IV PUSH (08:06)
[2022-09-01] MEDS: SODIUM CHLORIDE 0.9% IV 1,000 ML 75 ML IV CONT (10:55)
--- NOTE | 2022-09-01 12:57 | ADMGEN ---
This patient, Cristopher Nice, was admitted to 3 [facility] Surg Room 315-01. Patient/family oriented to hospital policies and general routines including ID bracelet, bed and alarms, visiting hours, pain management, procedures, bathroom and other care routines, personal items, smoking policy, room service/diet, and visiting hours. Information on how to activate the Rapid Response Team has been discussed. Patient/Family are encouraged to report perceived risks to care and to ask questions if they do not understand what they are told or what they should do.
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
--- NOTE | 2022-09-01 14:42 | PCDIET ---
Brief nutrition note: Screened for MST 4 with weight loss >34 lbs. Not able to assess patient yet before the weekend. Will follow up in 3 days for further assessment and continue to monitor.
[2022-09-01 14:48] LABS: Hematocrit 25.7 % (42.0-52.0); Hemoglobin 7.9 g/dL (14.0-18.0)
[2022-09-01 18:09] LABS: Anion Gap 13 mmol/L (8-16); Blood Urea Nitrogen 13 mg/dL (9-20); Calcium 8.9 mg/dL (8.4-10.2); Carbon Dioxide 21 mmol/L (22-30); Chloride 95 mmol/L (98-107); Estimated CRCL calculation 108 ml/min; Estimated Glomerular Filt Rate > 60; Glucose 111 mg/dL (65-110); Potassium 4.3 mmol/L (3.4-5.0); Sodium 129 mmol/L (137-145)
[2022-09-01] MEDS: fentaNYL (*CRX) 25 MCG PATCH TRANSDERM (18:45)
[2022-09-01 21:11] LABS: Hematocrit 26.1 % (42.0-52.0); Hemoglobin 8.3 g/dL (14.0-18.0)
[2022-09-02] VITALS (15 sets, daily range): BP systolic 101–126; BP diastolic 51–91; PULSE 82–107; RESP 16–20; TEMP 36.2–37.6; O2SAT 98–100
[2022-09-02 03:41] LABS: Basophils Percent Auto 0.4 % (0.2-1.2); Immature Granulocyte Absolute 0.05 K/mm3 (0.00-0.031); Lymphocytes Absolute Auto 1.23 K/mm3 (0.9-3.2); Lymphocytes Percent Auto 24.5 % (18.3-44.2); Mean Corpuscular HGB Conc 32.7 g/dl (32-36); Mean Corpuscular Hemoglobin 29.8 pg (26-34); Mean Corpuscular Volume 91.2 fl (80-100); Mean Platelet Volume 9.2 fl (7.4-10.4); Monocytes Absolute Auto 0.5 K/mm3 (0.1-0.6); Monocytes Percent Auto 10.7 % (2.6-8.5); Neutrophils Absolute Auto 3.2 K/mm3 (1.3-6.7); Neutrophils Percent Auto 63.4 % (45.5-73.1); Platelet Count Result 146 k/mm3 (150-375); Red Blood Count 2.28 M/mm3 (4.6-6.20); Red Cell Distribution Width 18.3 % (11.5-14.5)
[2022-09-02 03:52] LABS: Hemoglobin 6.8 g/dL (14.0-18.0)
[2022-09-02 03:53] LABS: Hematocrit 20.8 % (42.0-52.0)
[2022-09-02 03:54] LABS: Alanine Aminotransferase 10 U/L (6-50); Albumin Level 3.6 g/dL (3.5-5.1); Alkaline Phosphatase 256 U/L (38-126); Anion Gap 12 mmol/L (8-16); Aspartate Amino Transferase 66 U/L (17-59); Bilirubin,Total 0.6 mg/dL (0.2-1.3); Blood Urea Nitrogen 13 mg/dL (9-20); Calcium 8.8 mg/dL (8.4-10.2); Carbon Dioxide 22 mmol/L (22-30); Chloride 95 mmol/L (98-107); Estimated CRCL calculation 108 ml/min; Estimated Glomerular Filt Rate > 60; Glucose 110 mg/dL (65-110); Magnesium 1.9 mg/dL (1.6-2.3); Potassium 4.1 mmol/L (3.4-5.0); Sodium 129 mmol/L (137-145)
--- NOTE | 2022-09-02 05:25 | PC.NURSE ---
Weight entered in for patient was off by about ~20 lbs. Pt. bed zeroed, all extra blankets removed and pt. reweighed. New weight entered into system.
[2022-09-02 07:07] LABS: Sodium Urine Random 48 meq/L
[2022-09-02 07:27] LABS: Hematocrit 21.3 % (42.0-52.0)
[2022-09-02 08:03] LABS: Hemoglobin 6.7 g/dL (14.0-18.0)
[2022-09-02 12:21] LABS: Iron 57 ug/dL (49-181)
[2022-09-02 12:21] LABS: Lactate Dehydrogenase 728 U/L (120-246)
[2022-09-02 12:30] LABS: Percent Iron Saturation 29 % (20-50)
--- NOTE | 2022-09-02 13:15 | PM.IMPN ---
Progress Note: A&P Assessment and Plan (1) Acute hyponatremia: Code(s): E87.1 - Hypo-osmolality and hyponatremia Status: Acute Assessment and Plan: the patient has chronically low sodium And baseline appears 127-134. sodium was 127 on admission. This may be secondary to metastatic cancer presumed poor oral intake continue with NS at 75 mL/hour Trend sodium. 09/02 sodium 129. Urine sodium 48 and urine Osmo pending TSH within normal limits (2) Metastatic disease: Qualifiers: Area of secondary neoplastic involvement: bone Qualified Code(s): C79.51 - Secondary malignant neoplasm of bone Code(s): C79.9 - Secondary malignant neoplasm of unspecified site Status: Acute Assessment and Plan: patient was diagnosed with prostate cancer approximately 5 years and was treated with prostatectomy. In January of this year he presented to the hospital for hip pain,where CT spine showed extensive sclerosis of the bone consistent with widespread metastatic disease and CT chest showed extensive osteo sclerotic metastatic disease without pulmonary mass. Patient reports his oncologist is Dr. Spears and most recent notes show he has not been seen since his last hospitalization in November, however this is not consistent with what was stated upon admission, although he does report seeing some DrEh in [place]. We discussed referral to hospice extensively. The patient reports he is interested in discussing this further, however he would like to speak with his oncologist prior to making this decision. Code status is now DNR. continue pain management with fentanyl patch 25 mcg Q 72 hours, p.r.n. acetaminophen, p.r.n. IV Dilaudid, and will add p.r.n. oxycodone IR he may benefit from Marinol as he has lost a lot of weight and smoking marijuana helps him some. However the patient would need to find a license provider who can help him get medical marijuana. (3) Physical debility: Code(s): R53.81 - Other malaise Status: Acute Assessment and Plan: consulted dietary for supplements. The patient has lost 80 lb in the last year. started on ensure enlive for now. consult PT OT (4) Marijuana abuse: Code(s): F12.10 - Cannabis abuse, uncomplicated Status: Chronic Assessment and Plan: the patient has been using marijuana for pain management. (5) Hypomagnesemia: Code(s): E83.42 - Hypomagnesemia Status: Acute Assessment and Plan: magnesium level 1.5 on admission, patient presented with increasing weakness. He received 2 g IV Mag sulfate x1 09/02 magnesium level 1.9, Replace as necessary. (6) Anemia: Qualifiers: Anemia type: unspecified type Qualified Code(s): D64.9 - Anemia, unspecified Code(s): D64.9 - Anemia, unspecified Status: Acute Assessment and Plan: presumed chronic and secondary to metastatic cancer and malnutrition. He denies stool changes. Hemoglobin 7.9 and hematocrit 25.7% on admission 09/02 Repeat H&H 6.7 and 21.3%. I discussed with the patient risks benefits of transfusion and he is agreeable at this time. Will transfuse 1 unit of PRBCs leukocyte reduced and repeat H&H in 2 hours. Check iron panel, LDH, ferritin, B12 and folate (7) Back pain: Qualifiers: Back pain laterality: bilateral Back pain location: low back pain Chronicity: acute Sciatica presence: without sciatica Qualified Code(s): M54.50 - Low back pain, unspecified Code(s): M54.9 - Dorsalgia, unspecified Status: Chronic Assessment and Plan: Secondary to metastatic disease With bone involvement. Continue pain medication as above. Plan code status: DNR Disposition: pending further information Time Spent With Patient Time with patient: 15 - 25 minutes ( more than 50% of time discussing goals of care and hospice services) Subjective Date/time seen: 09/02/22 13:15 patient
[2022-09-02] MEDS: HYDROmorphone HCL INJ (*CRX) 1 MG/ML SYR 0.5 MG IV PUSH ×2 (13:19→20:17)
[2022-09-02] MEDS: SODIUM CHLORIDE 0.9% IV 250 ML 30 ML IV CONT (14:45)
[2022-09-02] MEDS: TUBING, BLOOD PLUM PUMP TUBING 1 EACH XX (14:45)
[2022-09-02 15:58] LABS: Ferritin > 2000.00 ng/mL (11.1-264)
[2022-09-02 19:49] LABS: Hematocrit 25.9 % (42.0-52.0); Hemoglobin 8.3 g/dL (14.0-18.0)
[2022-09-02 19:57] LABS: Lactate Dehydrogenase 640 U/L (120-246)
[2022-09-02] MEDS: oxyCODONE HCL (*CRX) 5 MG TAB IR PO (21:38)
[2022-09-02 22:08] LABS: Iron 88 ug/dL (49-181)
[2022-09-03] VITALS (9 sets, daily range): BP systolic 101–135; BP diastolic 73–83; PULSE 96–118; RESP 16–20; TEMP 36.1–36.9; O2SAT 97–100
[2022-09-03 00:19] LABS: Ferritin > 2000.00 ng/mL (11.1-264)
[2022-09-03] MEDS: SODIUM CHLORIDE 0.9% IV 1,000 ML 75 ML IV CONT (01:44)
[2022-09-03 05:50] LABS: Hematocrit 24.8 % (42.0-52.0); Hemoglobin 7.8 g/dL (14.0-18.0); Mean Corpuscular HGB Conc 31.5 g/dl (32-36); Mean Corpuscular Volume 92.2 fl (80-100); Mean Platelet Volume 9.4 fl (7.4-10.4); Platelet Count Result 150 k/mm3 (150-375); Red Blood Count 2.69 M/mm3 (4.6-6.20); Red Cell Distribution Width 17.6 % (11.5-14.5); White Blood Count 5.5 K/mm3 (4.5-10.0)
[2022-09-03 06:02] LABS: Alanine Aminotransferase 11 U/L (6-50); Albumin Level 3.3 g/dL (3.5-5.1); Alkaline Phosphatase 211 U/L (38-126); Anion Gap 8 mmol/L (8-16); Aspartate Amino Transferase 42 U/L (17-59); Bilirubin,Total 0.5 mg/dL (0.2-1.3); Blood Urea Nitrogen 14 mg/dL (9-20); Calcium 8.2 mg/dL (8.4-10.2); Carbon Dioxide 25 mmol/L (22-30); Chloride 97 mmol/L (98-107); Estimated CRCL calculation 97 ml/min; Estimated Glomerular Filt Rate > 60; Glucose 138 mg/dL (65-110); Potassium 3.9 mmol/L (3.4-5.0); Sodium 130 mmol/L (137-145)
[2022-09-03] MEDS: HYDROmorphone HCL INJ (*CRX) 1 MG/ML SYR 0.5 MG IV PUSH (06:32)
[2022-09-03 07:08] LABS: Folic Acid 5.1 ng/mL (2.76->20)
--- NOTE | 2022-09-03 07:46 | PCPTNOTE ---
Attempted PT evaluation this date however pt refused due to pain and is comfy in bed right now . Will continue to attempt.
--- NOTE | 2022-09-03 07:50 | PCOTNOTE ---
Attempted OT evaluation this date however patient refused due to pain and is comfy in bed right now . Will attempt at later time.
[2022-09-03] MEDS: LORazepam INJ (*CRX) 2 MG/ML VIAL 1 MG IV PUSH (09:12)
[2022-09-03] MEDS: ACETAMINOPHEN 325 MG TABLET 650 MG PO (09:13)
[2022-09-03] MEDS: LIDOCAINE 5% PATCH 1 PATCH TRANSDERM (11:52)
--- NOTE | 2022-09-03 12:43 | PM.IMPN ---
Progress Note: A&P Assessment and Plan (1) Acute hyponatremia: Code(s): E87.1 - Hypo-osmolality and hyponatremia Status: Acute Assessment and Plan: the patient has chronically low sodium And baseline appears 127-134. sodium was 127 on admission. This may be secondary to metastatic cancer presumed poor oral intake and malnutrition. continue with NS at 75 mL/hour Trend sodium. 09/02 sodium 129. Urine sodium 48 and urine Osmo pending TSH within normal limits Sodium 130 and slowly increasing. (2) Metastatic disease: Qualifiers: Area of secondary neoplastic involvement: bone Qualified Code(s): C79.51 - Secondary malignant neoplasm of bone Code(s): C79.9 - Secondary malignant neoplasm of unspecified site Status: Acute Assessment and Plan: patient was diagnosed with prostate cancer approximately 5 years and was treated with prostatectomy. In January of this year he presented to the hospital for hip pain,where CT spine showed extensive sclerosis of the bone consistent with widespread metastatic disease and CT chest showed extensive osteo sclerotic metastatic disease without pulmonary mass. Patient reports his oncologist is Dr. Spears and most recent notes show he has not been seen since his last hospitalization in November, however this is not consistent with what was stated upon admission, although he does report seeing some DrEh in [place]. We discussed referral to hospice extensively. The patient reports he is interested in discussing this further, however he would like to speak with his oncologist prior to making this decision. Code status is now DNR. continue pain management with fentanyl patch 25 mcg Q 72 hours, p.r.n. acetaminophen, p.r.n. IV Dilaudid, and will add p.r.n. oxycodone IR he may benefit from Marinol as he has lost a lot of weight and smoking marijuana helps him some. However the patient would need to find a license provider who can help him get medical marijuana. Awaiting oncology recommendations. (3) Physical debility: Code(s): R53.81 - Other malaise Status: Acute Assessment and Plan: consulted dietary for supplements. The patient has lost 80 lb in the last year. started on ensure enlive for now. consult PT OT (4) Marijuana abuse: Code(s): F12.10 - Cannabis abuse, uncomplicated Status: Chronic Assessment and Plan: the patient has been using marijuana for pain management. (5) Hypomagnesemia: Code(s): E83.42 - Hypomagnesemia Status: Acute Assessment and Plan: magnesium level 1.5 on admission, patient presented with increasing weakness. He received 2 g IV Mag sulfate x1 09/02 magnesium level 1.9, Replace as necessary. (6) Anemia: Qualifiers: Anemia type: other cause Other causes of anemia: chronic disease, neoplastic Qualified Code(s): D63.0 - Anemia in neoplastic disease Code(s): D64.9 - Anemia, unspecified Status: Acute Assessment and Plan: presumed chronic and secondary to metastatic cancer and malnutrition. He denies stool changes. Hemoglobin 7.9 and hematocrit 25.7% on admission 09/02 Repeat H&H 6.7 and 21.3%. I discussed with the patient risks benefits of transfusion and he is agreeable at this time. Will transfuse 1 unit of PRBCs leukocyte reduced and repeat H&H in 2 hours. serum iron 88, LDH 640, ferritin >2000, B12 366, folate 5.1. Anemia of chronic disease (7) Back pain: Qualifiers: Back pain laterality: bilateral Back pain location: low back pain Chronicity: acute Sciatica presence: without sciatica Qualified Code(s): M54.50 - Low back pain, unspecified Code(s): M54.9 - Dorsalgia, unspecified Status: Chronic Assessment and Plan: Secondary to metastatic disease With bone involvement. Continue pain medication as above. Plan code status: DNR Disposition: pending further information
[2022-09-03] MEDS: SENNA/DOCUSATE SODIUM TABLET 2 TAB PO (17:31)
[2022-09-03] MEDS: oxyCODONE HCL (*CRX) 5 MG TAB IR PO (17:31)
[2022-09-04] VITALS: PULSE 105
[2022-09-04 04:00] VITALS: PULSE 108
[2022-09-04] MEDS: oxyCODONE HCL (*CRX) 5 MG TAB IR PO ×4 (05:42→21:30)
[2022-09-04 06:00] VITALS: BP 122/74; PULSE 111; RESP 18; TEMP 37.6; O2SAT 100
[2022-09-04 06:11] LABS: Alanine Aminotransferase 19 U/L (6-50); Albumin Level 3.4 g/dL (3.5-5.1); Alkaline Phosphatase 317 U/L (38-126); Anion Gap 9 mmol/L (8-16); Aspartate Amino Transferase 54 U/L (17-59); Bilirubin,Total 0.3 mg/dL (0.2-1.3); Blood Urea Nitrogen 13 mg/dL (9-20); Calcium 8.5 mg/dL (8.4-10.2); Carbon Dioxide 27 mmol/L (22-30); Chloride 93 mmol/L (98-107); Estimated CRCL calculation 118 ml/min; Estimated Glomerular Filt Rate > 60; Glucose 142 mg/dL (65-110); Potassium 3.8 mmol/L (3.4-5.0); Sodium 129 mmol/L (137-145)
[2022-09-04 06:21] LABS: Hematocrit 24.5 % (42.0-52.0); Hemoglobin 7.5 g/dL (14.0-18.0); Mean Corpuscular HGB Conc 30.6 g/dl (32-36); Mean Corpuscular Hemoglobin 28.6 pg (26-34); Mean Corpuscular Volume 93.5 fl (80-100); Mean Platelet Volume 9.8 fl (7.4-10.4); Platelet Count Result 168 k/mm3 (150-375); Red Blood Count 2.62 M/mm3 (4.6-6.20); Red Cell Distribution Width 17.5 % (11.5-14.5); White Blood Count 5.5 K/mm3 (4.5-10.0)
[2022-09-04] MEDS: fentaNYL (*CRX) 25 MCG PATCH TRANSDERM (08:56)
[2022-09-04] MEDS: LIDOCAINE 5% PATCH 1 PATCH TRANSDERM (08:59)
--- NOTE | 2022-09-04 11:24 | PCNFU ---
Nutrition Follow-Up Complete: Severe malnutrition related to chronic cancer as evidenced by 18% weight loss/9 months. Goal:Adequate PO intake at least 75% meals. Pt is meeting goal, continue with same goal Pt current nutrition is Regular, Ensure Enlive TID. Nutrition recommendation: Continue with current plan of care. Last recorded weight is 58.4 kg - stable at this time. Bowel Motility: No BM recorded at this time Labs Reviewed: Hgb:7.5, HCT:24.5, Alb:3.4, Cr:0.4 Meds Noted:dulcolax Skin: No skin issues noted Additional Notes: Pt is on a regular diet, intake good at 75-100% of meals, consuming Ensure TID. Agree with diet orders. Continue with current plan of care. Monitor intakes, weights, labs, supplement tolerance, plan of care. Follow up in 7 days
[2022-09-04 14:03] VITALS: BP 119/78; PULSE 87; RESP 18; TEMP 36.7; O2SAT 99
--- NOTE | 2022-09-04 14:18 | PCOTNOTE ---
Attempted to see patient this pm, however patient refused. Pt wanted to sponge bathe, however refused activity out of bed or edge of bed. Gathered supplies and set up for sponge bath for patient to complete in bed. Pt stated, You can go now. Bed alarm on.
--- NOTE | 2022-09-04 14:36 | PM.IMPN ---
Progress Note: A&P Assessment and Plan (1) Acute hyponatremia: Code(s): E87.1 - Hypo-osmolality and hyponatremia Status: Acute Assessment and Plan: the patient has chronically low sodium And baseline appears 127-134. sodium was 127 on admission. This may be secondary to metastatic cancer presumed poor oral intake and malnutrition. continue with NS at 75 mL/hour Trend sodium. 09/02 sodium 129. Urine sodium 48 and urine Osmo pending TSH within normal limits Sodium 129 today while off IV fluids, was 130 on 09/03/22. (2) Metastatic disease: Qualifiers: Area of secondary neoplastic involvement: bone Qualified Code(s): C79.51 - Secondary malignant neoplasm of bone Code(s): C79.9 - Secondary malignant neoplasm of unspecified site Status: Acute Assessment and Plan: patient was diagnosed with prostate cancer approximately 5 years and was treated with prostatectomy. In January of this year he presented to the hospital for hip pain,where CT spine showed extensive sclerosis of the bone consistent with widespread metastatic disease and CT chest showed extensive osteo sclerotic metastatic disease without pulmonary mass. Patient reports his oncologist is Dr. Spears and most recent notes show he has not been seen since his last hospitalization in November, however this is not consistent with what was stated upon admission, although he does report seeing some DrEh in [place]. We discussed referral to hospice extensively. The patient reports he is interested in discussing this further, however he would like to speak with his oncologist prior to making this decision. Code status is now DNR. continue pain management with fentanyl patch 25 mcg Q 72 hours, p.r.n. acetaminophen, p.r.n. IV Dilaudid, and will add p.r.n. oxycodone IR he may benefit from Marinol as he has lost a lot of weight and smoking marijuana helps him some. However the patient would need to find a license provider who can help him get medical marijuana. Awaiting oncology recommendations as he appears to have been lost of follow-up earlier this year. (3) Physical debility: Code(s): R53.81 - Other malaise Status: Acute Assessment and Plan: consulted dietary for supplements. The patient has lost 80 lb in the last year. started on ensure enlive for now. consult PT OT. Patient refusing placement. (4) Marijuana abuse: Code(s): F12.10 - Cannabis abuse, uncomplicated Status: Chronic Assessment and Plan: the patient has been using marijuana for pain management. (5) Hypomagnesemia: Code(s): E83.42 - Hypomagnesemia Status: Acute Assessment and Plan: magnesium level 1.5 on admission, patient presented with increasing weakness. He received 2 g IV Mag sulfate x1 09/02 magnesium level 1.9 Stable. (6) Anemia: Qualifiers: Anemia type: other cause Other causes of anemia: chronic disease, neoplastic Qualified Code(s): D63.0 - Anemia in neoplastic disease Code(s): D64.9 - Anemia, unspecified Status: Acute Assessment and Plan: presumed chronic and secondary to metastatic cancer and malnutrition. He denies stool changes. Hemoglobin 7.9 and hematocrit 25.7% on admission 09/02 Repeat H&H 6.7 and 21.3%. I discussed with the patient risks benefits of transfusion and he is agreeable at this time. Will transfuse 1 unit of PRBCs leukocyte reduced and repeat H&H in 2 hours. serum iron 88, LDH 640, ferritin >2000, B12 366, folate 5.1. Anemia of chronic disease 09/04/22 Hgb 7.5. VSS. (7) Back pain: Qualifiers: Back pain laterality: bilateral Back pain location: low back pain Chronicity: acute Sciatica presence: without sciatica Qualified Code(s): M54.50 - Low back pain, unspecified Code(s): M54.9 - Dorsalgia, unspecified Status: Chronic Assessment and Plan: Secondary to metastatic diseas
[2022-09-04 21:53] VITALS: BP 116/66; PULSE 95; RESP 18; TEMP 37.1; O2SAT 98
[2022-09-04] MEDS: HYDROmorphone HCL INJ (*CRX) 1 MG/ML SYR 0.5 MG IV PUSH (23:44)
[2022-09-05] MEDS: oxyCODONE HCL (*CRX) 5 MG TAB IR PO ×3 (02:48→20:44)
[2022-09-05] MEDS: HYDROmorphone HCL INJ (*CRX) 1 MG/ML SYR 0.5 MG IV PUSH (05:40)
[2022-09-05 05:48] VITALS: BP 105/55; PULSE 89; RESP 18; TEMP 37.3; O2SAT 94
[2022-09-05 06:38] LABS: Hematocrit 25.8 % (42.0-52.0); Mean Corpuscular Hemoglobin 28.9 pg (26-34); Mean Corpuscular Volume 93.1 fl (80-100); Mean Platelet Volume 9.9 fl (7.4-10.4); Platelet Count Result 185 k/mm3 (150-375); Red Blood Count 2.77 M/mm3 (4.6-6.20); Red Cell Distribution Width 17.6 % (11.5-14.5); White Blood Count 5.3 K/mm3 (4.5-10.0)
[2022-09-05 06:49] LABS: Alanine Aminotransferase 17 U/L (6-50); Albumin Level 3.7 g/dL (3.5-5.1); Alkaline Phosphatase 277 U/L (38-126); Anion Gap 11 mmol/L (8-16); Aspartate Amino Transferase 37 U/L (17-59); Bilirubin,Total 0.5 mg/dL (0.2-1.3); Blood Urea Nitrogen 12 mg/dL (9-20); Carbon Dioxide 29 mmol/L (22-30); Chloride 91 mmol/L (98-107); Estimated CRCL calculation 118 ml/min; Estimated Glomerular Filt Rate > 60; Glucose 148 mg/dL (65-110); Magnesium 1.7 mg/dL (1.6-2.3); Potassium 3.7 mmol/L (3.4-5.0); Sodium 131 mmol/L (137-145)
[2022-09-05 08:00] VITALS: PULSE 89; RESP 18; O2SAT 94
[2022-09-05] MEDS: LIDOCAINE 5% PATCH 1 PATCH TRANSDERM (09:23)
[2022-09-05] MEDS: SENNA/DOCUSATE SODIUM TABLET 2 TAB PO ×2 (09:23→18:32)
[2022-09-05 13:56] VITALS: BP 119/59; PULSE 92; RESP 16; TEMP 36.8; O2SAT 100
--- NOTE | 2022-09-05 16:25 | PC.NURSE ---
Pt verbally aggressive this shift. Answers that he had a bowel movement two days ago when asked. Refused to discuss further information.
--- NOTE | 2022-09-05 17:26 | PM.IMPN ---
Progress Note: A&P Assessment and Plan (1) Acute hyponatremia: Code(s): E87.1 - Hypo-osmolality and hyponatremia Status: Acute Assessment and Plan: the patient has chronically low sodium And baseline appears 127-134. sodium was 127 on admission. This may be secondary to metastatic cancer presumed poor oral intake and malnutrition. Tredate with NS at 75 mL/hour from admission to 09/03/22. Sodium 128 to 129 to 130 to 131. Urine sodium 48 and urine Osmo pending. TSH within normal limits (2) Metastatic disease: Qualifiers: Area of secondary neoplastic involvement: bone Qualified Code(s): C79.51 - Secondary malignant neoplasm of bone Code(s): C79.9 - Secondary malignant neoplasm of unspecified site Status: Acute Assessment and Plan: patient was diagnosed with prostate cancer approximately 5 years and was treated with prostatectomy. In January of this year he presented to the hospital for hip pain,where CT spine showed extensive sclerosis of the bone consistent with widespread metastatic disease and CT chest showed extensive osteo sclerotic metastatic disease without pulmonary mass. Patient reports his oncologist is Dr. Spears and most recent notes show he has not been seen since his last hospitalization in November, however this is not consistent with what was stated upon admission, although he does report seeing some DrEh in [place]. We discussed referral to hospice extensively. The patient reports he is interested in discussing this further, however he would like to speak with his oncologist prior to making this decision. Code status is now DNR. continue pain management with fentanyl patch 25 mcg Q 72 hours, p.r.n. acetaminophen, p.r.n. IV Dilaudid, and will add p.r.n. oxycodone IR he may benefit from Marinol as he has lost a lot of weight and smoking marijuana helps him some. However the patient would need to find a license provider who can help him get medical marijuana. Can discharge tomorrow after being evaluated by Oncology. (3) Physical debility: Code(s): R53.81 - Other malaise Status: Acute Assessment and Plan: consulted dietary for supplements. The patient has lost 80 lb in the last year. started on ensure enlive for now. consult PT OT. Patient refusing placement and plans to discharge home with family support. (4) Marijuana abuse: Code(s): F12.10 - Cannabis abuse, uncomplicated Status: Chronic Assessment and Plan: the patient has been using marijuana for pain management. (5) Hypomagnesemia: Code(s): E83.42 - Hypomagnesemia Status: Acute Assessment and Plan: magnesium level 1.5 on admission, patient presented with increasing weakness. He received 2 g IV Mag sulfate x1 09/02 magnesium level 1.9 Stable. (6) Anemia: Qualifiers: Anemia type: other cause Other causes of anemia: chronic disease, neoplastic Qualified Code(s): D63.0 - Anemia in neoplastic disease Code(s): D64.9 - Anemia, unspecified Status: Acute Assessment and Plan: presumed chronic and secondary to metastatic cancer and malnutrition. He denies stool changes. Hemoglobin 7.9 and hematocrit 25.7% on admission 09/02 Repeat H&H 6.7 and 21.3%. I discussed with the patient risks benefits of transfusion and he is agreeable at this time. Will transfuse 1 unit of PRBCs leukocyte reduced and repeat H&H in 2 hours. serum iron 88, LDH 640, ferritin >2000, B12 366, folate 5.1. Anemia of chronic disease 09/04/22 Hgb 7.5. VSS. 09/05/22 Hgb 8.0 and B12 injections started by oncology. (7) Back pain: Qualifiers: Back pain laterality: bilateral Back pain location: low back pain Chronicity: acute Sciatica presence: without sciatica Qualified Code(s): M54.50 - Low back pain, unspecified Code(s): M54.9 - Dorsalgia, unspecified Status: Chronic Assessment and Plan: Secondary to
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
[2022-09-05 22:00] VITALS: BP 119/64; PULSE 98; RESP 18; TEMP 36.4; O2SAT 99
[2022-09-06] VITALS (7 sets, daily range): BP systolic 108–134; BP diastolic 60–87; PULSE 99–112; RESP 16–18; TEMP 36.1–36.6; O2SAT 99–100
[2022-09-06 00:27] LABS: Prostate Specific Antigen > 100.0 ng/mL (< OR = 4.0)
[2022-09-06] MEDS: oxyCODONE HCL (*CRX) 5 MG TAB IR PO (03:56)
[2022-09-06 07:24] LABS: Hematocrit 26.5 % (42.0-52.0); Hemoglobin 8.3 g/dL (14.0-18.0)
[2022-09-06 07:36] LABS: Sodium 132 mmol/L (137-145)
[2022-09-06] MEDS: SENNA/DOCUSATE SODIUM TABLET 2 TAB PO (09:10)
[2022-09-06] MEDS: CYANOCOBALAMIN INJ 1,000 MCG/ML VIAL 1000 MCG IM (09:10)
[2022-09-06] MEDS: BICALUTAMIDE (*CHEMO) 50 MG TABLET PO (09:10)
[2022-09-06] MEDS: LIDOCAINE 5% PATCH 1 PATCH TRANSDERM (09:11)
--- NOTE | 2022-09-06 15:13 | PM.DS ---
DS: Admitting Diagnosis Discharge Date 09/06/2022 Admitting Diagnosis Generalized pain DS: Discharge Diagnosis Discharge Diagnosis Plan metastatic disease secondary to prostate cancer DS: Summary Hospital Course Reason for hospitalization: generalized pain with metastatic disease Hospital Course: 67-year-old man with history of prostate cancer presents to the ER with generalized pain. CT of abdomen and pelvis show worsening widespread sclerosis involving all bones consistent with metastatic disease. Patient had prostatectomy about 5 years ago had been diagnosed with extensive sclerosis of the bone consistent with widespread metastatic disease in January of this year. Hospice was discussed in length with the patient. Patient may be interested wants to discuss with Oncology before making that decision. He is interested in pain management and not cancer treatment. Patient given fentanyl patch 25 mcg q.72 hours, p.r.n. acetaminophen, p.r.n. IV Dilaudid and oxycodone p.r.n. During hospitalization H&H dropped to 6.7 and 21.3%. Patient was transfused with 1 unit of PRBCs leukocyte reduced and repeat H&H 8.3 and 25.9 %. Oncology was consulted. Oncology has agreed to follow this patient on an outpatient basis and treat him. Patient has not been following up with oncologist in the past and oncologist believes that anemia will improve with cancer treatment. During stay patient appeared to have hyponatremia and patient has been receiving IV fluids. Patients sodium is consistent in the low 130s and high 120s. Sodium stable on discharge. Status at Discharge Functional status at discharge: independent ambulation Overall status at discharge: patient is progressing back to baseline Time Spent with Patient Time attestation: Total time spent providing and/or coordinating discharge services: Time spent: Greater than 30 minutes Exam Narrative: GENERAL: Comfortable, no acute distress, thin, foul odor HENMT: moist mucous membranes, poor halfway EYES: EOM intact b/l NECK: no lymphadenopathy RESPIRATORY: clear to auscultation CARDIO: RRR GI: soft, nontender, bowel sounds present SKIN: no rashes EXTREMITIES: no edema, redness or tenderness DS: Data Data Completed and Pending Labs on day of discharge: Labs from last 24 hours 09/06/22 09/06/22 09/05/22 06:32 06:32 22:58 Hgb 8.3 L Hct 26.5 L Sodium 132 L Prostate Specific Ag > 100.0 H Discharge Plan Discharge Attending physician on discharge: José Kaur Consulting providers: Manjit Spears Discharging Clinician: Ligia Bruner Anticipated Discharge Date/Time: 09/06/22 18:34 Patient Disposition: Home, Self-Care Activity: as tolerated Diet: as tolerated Discharge Instructions: Discharge disposition: Take medications as prescribed Monitor blood pressures Avoid social areas, you wear a mask when in social settings Encouraged to continue with yearly vaccinations Return to the emergency department if he developed sudden shortness of breath, chest pain, nausea, vomiting, upset stomach or intractable diarrhea Return to the emergency department if you develop fever greater than 100.4 Follow-up with the Oncology, Dr. Spears, to continue cancer treatment. Thank you for [facility] for your healthcare needs Patient Instructions: Antibiotic Form, Pain Management (DC), Hospice Care (GEN) Patient Language: Indonesian Stand Alone Forms: General Discharge Information Follow-up/Referrals: aMnjit Spears MD [Physician] - Discharge Medications: No Action No Home Medications Date of admission: 09/03/22 15:19 Primary Care Provider: JaceyAlexa Admitting Provider: Hakeem Menjivar Attending physician on admission: Hakeem Menjivar Condition: Serious
--- NOTE | 2022-09-06 16:33 | PC.NURSE ---
Discharge instruction given to pt. Pt very verbally aggressive to nursing staff. Refusing to sign discharge instructions at this time. Refuses to allow nursing staff to assist with transfer to and assist to get dressed. Pt to call someone for transportation home. Will monitor.
[2022-09-06 18:02] LABS: Osmolality, Urine 407 mOsm/kg (50-1200)
== END 2022-09-06 17:30 | disposition home or self-care (01) | DRG 343 ==
LOC: ANHED 08:32 → ANH3MEDSUR 15:55
PROVIDERS: Internal Medicine Hematology & Oncology; Nurse Practitioner; Nurse Practitioner Family; Admitting Provider Chiropractor; Emergency Provider Emergency Medicine; PCP Internal Medicine; Visit Provider Internal Medicine
DX: C79.51 Secondary malignant neoplasm of bone (principal); R64 Cachexia; E83.42 Hypomagnesemia; G89.3 Neoplasm related pain (acute) (chronic); E87.1 Hypo-osmolality and hyponatremia; D64.9 Anemia, unspecified; R53.81 Other malaise; F12.90 Cannabis use, unspecified, uncomplicated; Z20.828 Contact with and (suspected) exposure to other viral communicable diseases; Z66 Do not resuscitate; Z85.46 Personal history of malignant neoplasm of prostate; Z68.1 Body mass index [BMI] 19.9 or less, adult
CPT/HCPCS: 36415; 36430; 71260; 74177; 80048; 80053; 82607; 82728; 82746; 83540; 83550; 83605; 83615; 83735; 83935; 84153; 84295; 84300; 84443; 84484; 85014; 85018; 85025; 85027; 86850; 86900; 86901; 86923; 93005; 96365; 96374; 96375; 96376; 97116; 97162; 97165; 97530; 99285; A9270; G0378; J0131; J1170; J2060; J3420; J3475; J7030; J7050; P9016; Q9967; U0003; U0005

== ENCOUNTER 2022-10-02 16:20 | Inpatient (IN) | payer OTHER, SELFPAY ==
--- NOTE | ~2022-10-02 | CT_ITS ---
CT Facial Bones Clinical Indication: Fever, jaw pain Technique: Following intravenous administration of 75 cc of Omnipaque 350 [facility] were obtained through the facial bones, followed by coronal and sagittal reconstructio ns. Dose reduction technique was used on this scan by utilizing automated exposure control and iterat imelda reconstruction technique. The dose-length product (DLP) was 380.87 mGy-cm. Findings: There are erosive changes involving the right mandibular condyle, and probably extending through the right mandibular ramus to the angle of the mandible on the right side. Findings are best appreciated on series 2 images 214-220 for example, and on series 2 images 119-131 for example. There is subtle l inear lucency through the upper portion of the left mandibular ramus seen on sagittal images (series 605 images 35-36). There is mild periosteal reaction present in this region. Questionable additional erosive changes in the right maxilla, versus periodontal disease/change. Ther e is extensive patchy sclerotic change in the visualized cervical spine and clivus. No abscess identified. Mildly prominent submental lymph nodes are noted. Parapharyngeal fat preserved bilaterally. No definite soft tissue mass seen otherwise. Impression: Erosive changes involving the right angle of mandible, right mandibular ramus, and right mandibular c ondyle, as detailed above. Given history of fever and jaw pain, osteomyelitis is a consideration. The re is also suggestion of a very subtle nondisplaced fracture through the right mandibular ramus, as d etailed above. Questionable additional erosive changes of the right maxilla. This could be related to osteomyelitis and/or periodontal disease. Evidence of metastatic disease in the visualized cervical spine. Patient has history of metastatic pr ostate cancer. No abscess evident. Mildly prominent submental lymph nodes, nonspecific. Reviewed, dictated and finalized at location . VISION NEWS PHOTOGRAPHER Impression: Erosive changes involving the right angle of mandible, right mandibular ramus, and right mandibular condyle, as detailed above. Given history of fever and jaw pain, osteomyelitis is a consideration. There is also suggestion of a very sub tle nondisplaced fracture through the right mandibular ramus, as detailed above . Questionable additional erosive changes of the right maxilla. This could be rel ated to osteomyelitis and/or periodontal disease. Evidence of metastatic disease in the visualized cervical spine. Patient has hi story of metastatic prostate cancer. No abscess evident. Mildly prominent submental lymph nodes, nonspecific.
--- NOTE | ~2022-10-02 | CT_ITS ---
EXAMINATION: CT brain wo con DATE: 10/02/2022 21:39 INDICATION: Weakness, body aches, fever TECHNIQUE: Computed tomography (CT) of the head was performed without intravenous contrast. The mA wa s adjusted according to patient size. Iterative reconstruction technique was employed. Exam dose: 60 5.33 mGy-cm total exam DLP. COMPARISON: None FINDINGS: Bilateral carotid siphon internal carotid artery calcifications. No intracranial mass lesion or hemorrhage or cerebrovascular accident is evident. No midline shift or mass effect. No subdural or epidural hematoma. No fracture or bone destruction of the cranial vault. There is mild fluid and/or soft tissue thickening of the right sphenoid sinus. Included paranasal sin uses and mastoid air cells are otherwise unremarkable. No fracture or bone destruction of the cranial vault. IMPRESSION: No acute intracranial finding Reviewed, dictated and finalized at Location [facility]. Reviewed, dictated and finalized at location A. REGATIONAL CARE PASTOR
--- NOTE | ~2022-10-02 | XR_ITS ---
XR chest 1V portable DATE: 10/02/2022 19:45 INDICATION: Fever. Weakness. History of prostate and colon cancer. Smoker. TECHNIQUE: Portable upright AP chest on 10/02/2022 at 1938 hours COMPARISON: 09/01/2022 CT chest abdomen 12/01/2021 2 view chest FINDINGS: Normal heart size. No pulmonary infiltrate or consolidation, pleural effusion or pulmonary vascular congestion or pneumothorax is evident Diffusely sclerotic skeletal structures consistent with extensive osteosclerotic metastatic disease f rom clinically known prostate cancer. IMPRESSION: Extensive osteosclerotic metastatic disease from prostate cancer No active cardiopulmonary disease Reviewed, dictated and finalized at location A. OND DIE MAKER
--- NOTE | ~2022-10-02 | CT_ITS ---
EXAMINATION: CT lumbar spine wo con DATE: 10/02/2022 21:50 INDICATION: Weakness. TECHNIQUE: Computed tomography (CT) of the lumbar spine was performed without intravenous contrast. A utomated exposure control and iterative reconstruction technique were employed. The dose-length produ ct was 789.69 mGy-cm. COMPARISON: CT lumbar spine 12/01/2021 FINDINGS: There is 9 degrees levocurvature of lumbar spine. There is 3 mm anterolisthesis of L4 on L5 and 3 mm retrolisthesis of L5 on S1. Vertebral body heights are normal. There is widespread sclerosi s of all bones. There is mildly decreased disc height at T12-L1, L2-L3, and L3-L4, moderately decreas ed disc height at L4-L5, and severely decreased disc height at L5-S1 with endplate remodeling. The fo llowing disc levels are specifically discussed: L1-L2: The disc does not extend beyond the endplate margin. There is severe right and moderate left f acet joint osteoarthritis. There is no neural foraminal stenosis. There is no central canal stenosis. L2-L3: The disc is bulging. There is moderate bilateral facet joint osteoarthritis. There is mild manan ateral neural foraminal stenosis. There is mild central canal stenosis. L3-L4: The disc is bulging. There is severe bilateral facet joint osteoarthritis. There is mild bilat eral neural foraminal stenosis. There is mild central canal stenosis. L4-L5: The disc is bulging. There is severe bilateral facet joint osteoarthritis. There is moderate b ilateral neural foraminal stenosis. There is mild central canal stenosis. L5-S1: The disc is bulging. There is moderate bilateral facet joint osteoarthritis. There is moderate bilateral neural foraminal stenosis. There is mild central canal stenosis. IMPRESSION: 1. Widespread sclerosis of all bones with worsening from 12/01/2021, consistent with metastatic diseas e. 2. Stable severe lower lumbar spondylosis. Reviewed, dictated and finalized at location A. INSPECTOR IMPRESSION: 1. Widespread sclerosis of all bones with worsening from 12/01/2021, consistent with metastatic disease. 2. Stable severe lower lumbar spondylosis.
[2022-10-02 16:41] VITALS: BP 102/61; PULSE 114; RESP 20; TEMP 38.2; O2SAT 98
[2022-10-02] MEDS: SODIUM CHLORIDE 0.9% IV 1,000 ML 999 ML IV CONT ×2 (18:24→19:00)
--- NOTE | 2022-10-02 19:01 | PC.NURSE ---
Pt. able to ambulate from their wheelchair to the intake desk to ask about the wait time. Pt. returned to their wheelchair with a steady gait.
[2022-10-02 19:18] VITALS: BP 87/56; PULSE 111; O2SAT 97
--- NOTE | 2022-10-02 19:20 | ECG_ITS ---
Measurements Intervals [place] Rate: 113 P: 57 W[place]: 124 QRS: -18 QRSD: 75 T: 55 QT: 318 QTc: 438 Interpretive Statements SINUS TACHYCARDIA ABNORMAL RHYTHM ECG COMPARED TO ECG 09/01/2022 04:01:32 NO SIGNIFICANT CHANGES Electronically Signed On 10-03-2022 15:30:37 [employer]HOU[employer]ENT by Jason Qureshi M.D.
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
[2022-10-02 20:06] LABS: Basophils Percent Auto 0.8 % (0.2-1.2); Eosinophils Percent Auto 0.2 % (0-4.4); Hematocrit 28.1 % (42.0-52.0); Hemoglobin 8.7 g/dL (14.0-18.0); Immature Granulocyte Absolute 0.03 K/mm3 (0.00-0.031); Immature Granulocyte Percent A 0.6 % (0-0.5); Lymphocytes Percent Auto 22.3 % (18.3-44.2); Mean Corpuscular Hemoglobin 29.3 pg (26-34); Mean Corpuscular Volume 94.6 fl (80-100); Mean Platelet Volume 9.2 fl (7.4-10.4); Monocytes Absolute Auto 0.5 K/mm3 (0.1-0.6); Monocytes Percent Auto 9.3 % (2.6-8.5); Neutrophils Absolute Auto 3.3 K/mm3 (1.3-6.7); Neutrophils Percent Auto 66.8 % (45.5-73.1); Platelet Count Result 129 k/mm3 (150-375); Red Blood Count 2.97 M/mm3 (4.6-6.20); Red Cell Distribution Width 18.9 % (11.5-14.5); White Blood Count 4.9 K/mm3 (4.5-10.0)
[2022-10-02 20:19] LABS: Influenza A QL RT-PCR Negative (Negative); Influenza B QL RT-PCR Negative (Negative); SARS-CoV-2 RNA PCR Negative
[2022-10-02 20:29] LABS: INR 1.4; Prothrombin Time 16.4 Seconds (11.1-14.7)
[2022-10-02 20:33] LABS: Lactic Acid Reflex 2.1 mmol/L (0.7-2.0)
[2022-10-02 20:37] LABS: Alanine Aminotransferase 12 U/L (6-50); Albumin Level 4.3 g/dL (3.5-5.1); Alkaline Phosphatase 319 U/L (38-126); Anion Gap 11 mmol/L (8-16); Aspartate Amino Transferase 199 U/L (17-59); Bilirubin,Total 0.9 mg/dL (0.2-1.3); Blood Urea Nitrogen 11 mg/dL (9-20); Calcium 9.3 mg/dL (8.4-10.2); Carbon Dioxide 23 mmol/L (22-30); Chloride 98 mmol/L (98-107); Estimated CRCL calculation 118 ml/min; Estimated Glomerular Filt Rate > 60; Glucose 122 mg/dL (65-110); Potassium 4.8 mmol/L (3.4-5.0); Sodium 132 mmol/L (137-145)
[2022-10-02 20:51] LABS: Add Urine Microscopic? YES; Appearance Urine Clear (Clear); Bilirubin Urine Negative (Negative); Blood Urine Negative (Negative); Color Urine Light Yellow (Yellow); Glucose Urine UA Negative (Negative); Ketones Urine 1+ mg/dL (Negative); Leukocyte Esterase Ur Negative LEU/UL (Negative); Nitrate Urine Negative (Negative); Protein Urine 1+ mg/dL (Negative); Urobilinogen Urine 0.2 mg/dL (<2.0)
[2022-10-02 20:59] LABS: Mucus Urine Rare /lpf; RBC Urine 0-2 /hpf (0-2); WBC Urine 0-3 /hpf
[2022-10-02 21:00] LABS: CRP 25.4 mg/dL (<1.0)
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
[2022-10-02 23:12] LABS: Reflex Lactic Acid Yes or No Add Lactic
[2022-10-02] MEDS: SODIUM CHLORIDE 0.9% IV 1,000 ML 125 ML IV CONT (23:17)
[2022-10-02] MEDS: HYDROmorphone HCL INJ (*CRX) 1 MG/ML SYR 0.5 MG IV PUSH (23:17)
[2022-10-03 00:42] LABS: Lactic Acid 4.4 mmol/L (0.7-2.0)
[2022-10-03] MEDS: SODIUM CHLORIDE 0.9% IV 1,000 ML 125 ML IV CONT ×3 (00:54→18:53)
[2022-10-03] MEDS: HYDROmorphone HCL INJ (*CRX) 1 MG/ML SYR 0.5 MG IV PUSH (06:58)
[2022-10-03 07:18] LABS: Basophils Percent Auto 0.4 % (0.2-1.2); Eosinophils Percent Auto 0.2 % (0-4.4); Hematocrit 24.2 % (42.0-52.0); Hemoglobin 7.5 g/dL (14.0-18.0); Immature Granulocyte Absolute 0.03 K/mm3 (0.00-0.031); Immature Granulocyte Percent A 0.6 % (0-0.5); Lymphocytes Absolute Auto 1.38 K/mm3 (0.9-3.2); Lymphocytes Percent Auto 27.4 % (18.3-44.2); Mean Corpuscular Hemoglobin 28.6 pg (26-34); Mean Corpuscular Volume 92.4 fl (80-100); Mean Platelet Volume 9.6 fl (7.4-10.4); Monocytes Absolute Auto 0.5 K/mm3 (0.1-0.6); Monocytes Percent Auto 9.1 % (2.6-8.5); Neutrophils Absolute Auto 3.1 K/mm3 (1.3-6.7); Neutrophils Percent Auto 62.3 % (45.5-73.1); Platelet Count Result 121 k/mm3 (150-375); Red Blood Count 2.62 M/mm3 (4.6-6.20); Red Cell Distribution Width 18.7 % (11.5-14.5)
[2022-10-03 07:29] LABS: Alanine Aminotransferase 11 U/L (6-50); Albumin Level 3.7 g/dL (3.5-5.1); Alkaline Phosphatase 270 U/L (38-126); Anion Gap 9 mmol/L (8-16); Aspartate Amino Transferase 204 U/L (17-59); Bilirubin,Total 0.9 mg/dL (0.2-1.3); Blood Urea Nitrogen 10 mg/dL (9-20); Calcium 8.7 mg/dL (8.4-10.2); Carbon Dioxide 22 mmol/L (22-30); Chloride 99 mmol/L (98-107); Estimated CRCL calculation 143 ml/min; Estimated Glomerular Filt Rate > 60; Glucose 98 mg/dL (65-110); Potassium 4.1 mmol/L (3.4-5.0); Sodium 130 mmol/L (137-145)
--- NOTE | 2022-10-03 10:00 | PM.IMPN ---
Progress Note: A&P Assessment and Plan (1) Physical debility: Code(s): R53.81 - Other malaise Status: Acute Assessment and Plan: likely secondary to disease progression patient is known to have metastatic prostate cancer will likely benefit from hospice but he is resistant at this time. Care coordination consulted and pt agreeable to SNF PT/OT consult. supportive care (2) Metastatic disease: Code(s): C79.9 - Secondary malignant neoplasm of unspecified site Status: Acute Assessment and Plan: metastatic prostate cancer Dr. Spears consulted (3) Adult failure to thrive: Code(s): R62.7 - Adult failure to thrive Status: Acute Assessment and Plan: likely secondary to deconditioning and disease progression As above Consult dietitian (4) Back pain: Qualifiers: Back pain laterality: bilateral Back pain location: low back pain Chronicity: acute Sciatica presence: without sciatica Qualified Code(s): M54.50 - Low back pain, unspecified Code(s): M54.9 - Dorsalgia, unspecified Status: Chronic Assessment and Plan: Secondary to metastatic lesions to a spine. Fentanyl 25 mcg patch Q72 hours PRN oxycodone 5 mg Q4 hours (5) Acute hyponatremia: Code(s): E87.1 - Hypo-osmolality and hyponatremia Status: Acute Assessment and Plan: Chronic, sodium 130. Give gentle hydration Trend sodium (6) Fever: Code(s): R50.9 - Fever, unspecified Status: Acute Assessment and Plan: Low grade temp in ED 100.7F UA negative infection CXR negative pneumonia No abd pain, N/V/D reported. No open wounds appreciated. Some jaw/mouth pain reported. Check facial CT r/o abscess. Plan CODE STATUS: FULL CODE Disposition: observation Discharge plan: SNF Time Spent With Patient Time with patient: 15 - 25 minutes Subjective Date/time seen: 10/03/22 10:00 He hurts all over. No dysuria, cough, sputum, chest pain, COYNE, sore throat, diarrhea, abd pain, N/V. He denies open wounds. He does have bilateral jaw pain, but no tooth pain or ear pain. He was taking ibuprofen for pain at home that was ineffective. Review of Systems Review of Systems: All systems reviewed & are unremarkable except as noted in HPI and below Exam Narrative: General: No acute distress.? Thin, frail, adult male lying in bed. Mental Status/Psych: Awake, alert and oriented x3 with clear , soft speech.?poor eye contact. Skin: warm, dry and intact without rashes or lesions. No open wounds. Poor turgor.? HEENT: Normocephalic.? atraumatic. Sclera is non-icteric. Pupils equal and round. Oral mucosa moist. ear canal with moderate cerumen and TM pearly white without exudate noted. Neck:? supple without lymphadenopathy or tenderness to palpation.? Heart: S1 and S2 regular rate and rhythm. No murmurs, gallops, or rubs auscultated. Chest: Respirations even and unlabored. Lung sounds are clear to auscultation in all lobes bilaterally without wheezes, rhonchi, or rales. Abdomen: Soft, round and non-tender to palpation.? Bowel sounds present in all 4 quadrants. No guarding. Extremities:? Grossly normal ROM all extremities with generalized weakness? All extremities. No edema, erythema or tenderness to palpation. Radial and dorsalis pedis pulses +2 bilaterally. Neurological: No focal sensory or motor deficits.? cranial nerves 2-12 grossly intact.? No facial droop.? Tongue midline.? No clonus, tremors or fasciculations. ? Objective Data Vital Signs Vital Signs: Vital Signs - 24 hr 10/02/22 16:41 10/02/22 19:18 Temperature 100.7 F H Pulse Rate 114 H 111 H Respiratory Rate 20 Blood Pressure 102/61 87/56 L Pulse Oximetry 98 97 Oxygen Delivery Room Air Intake/Output Intake/Output: Intake & Output 09/30/22 10/01/22 10/02/22 10/03/22 23:59 23:59 23:59 23:59 Intake Total 4000 Balance 4000 Meds/Results Medications: Ac
[2022-10-03 10:23] VITALS: BMI 23.9
--- NOTE | 2022-10-03 10:43 | ADMGEN ---
This patient, Cristopher Nice, was admitted to [facility] 3rd Floor-3, currently boarded in ED 6. Patient/family oriented to hospital policies and general routines including ID bracelet, bed and alarms, visiting hours, pain management, procedures, bathroom and other care routines, personal items, smoking policy, room service/diet, and visiting hours. Information on how to activate the Rapid Response Team has been discussed. Patient/Family are encouraged to report perceived risks to care and to ask questions if they do not understand what they are told or what they should do.
[2022-10-03 11:52] VITALS: BMI 23.9
[2022-10-03] MEDS: fentaNYL (*CRX) 25 MCG PATCH TRANSDERM (12:11)
[2022-10-03 17:10] VITALS: BP 115/72; PULSE 115; RESP 18; TEMP 36.5; O2SAT 97
[2022-10-03 20:31] VITALS: BP 116/71; PULSE 116; RESP 12; TEMP 36.6; O2SAT 96
[2022-10-03] MEDS: oxyCODONE HCL (*CRX) 5 MG TAB IR PO (20:59)
[2022-10-04 06:44] LABS: Basophils Percent Auto 0.4 % (0.2-1.2); Hematocrit 24.7 % (42.0-52.0); Hemoglobin 7.8 g/dL (14.0-18.0); Immature Granulocyte Absolute 0.03 K/mm3 (0.00-0.031); Immature Granulocyte Percent A 0.6 % (0-0.5); Lymphocytes Absolute Auto 1.07 K/mm3 (0.9-3.2); Lymphocytes Percent Auto 21.5 % (18.3-44.2); Mean Corpuscular HGB Conc 31.6 g/dl (32-36); Mean Corpuscular Hemoglobin 28.9 pg (26-34); Mean Corpuscular Volume 91.5 fl (80-100); Mean Platelet Volume 9.7 fl (7.4-10.4); Monocytes Absolute Auto 0.6 K/mm3 (0.1-0.6); Monocytes Percent Auto 12.1 % (2.6-8.5); Neutrophils Absolute Auto 3.3 K/mm3 (1.3-6.7); Neutrophils Percent Auto 65.4 % (45.5-73.1); Platelet Count Result 128 k/mm3 (150-375); Red Cell Distribution Width 18.4 % (11.5-14.5)
[2022-10-04 06:54] LABS: Anion Gap 10 mmol/L (8-16); Blood Urea Nitrogen 12 mg/dL (9-20); Calcium 8.5 mg/dL (8.4-10.2); Carbon Dioxide 23 mmol/L (22-30); Chloride 95 mmol/L (98-107); Estimated CRCL calculation 118 ml/min; Estimated Glomerular Filt Rate > 60; Glucose 97 mg/dL (65-110); Magnesium 1.3 mg/dL (1.6-2.3); Potassium 3.9 mmol/L (3.4-5.0); Sodium 128 mmol/L (137-145)
[2022-10-04 08:00] LABS: Folic Acid 18.3 ng/mL (2.76->20)
--- NOTE | 2022-10-04 10:22 | PM.IMPN ---
Progress Note: A&P Assessment and Plan (1) Physical debility: Code(s): R53.81 - Other malaise Status: Acute Assessment and Plan: likely secondary to disease progression patient is known to have metastatic prostate cancer will likely benefit from hospice but he is resistant at this time. Care coordination consulted and pt agreeable to SNF PT/OT consult. supportive care Patient is waiting to hear back from [place] [facility] Plan to discharge patient tomorrow. (2) Metastatic disease: Code(s): C79.9 - Secondary malignant neoplasm of unspecified site Status: Acute Assessment and Plan: metastatic prostate cancer Patient was supposed to be following up with Dr. Jessi rosa as an outpatient to get treatment for his cancer but has failed to do so. Dr. Spears consulted (3) Adult failure to thrive: Code(s): R62.7 - Adult failure to thrive Status: Acute Assessment and Plan: likely secondary to deconditioning and disease progression As above Consult dietitian (4) Back pain: Qualifiers: Back pain laterality: bilateral Back pain location: low back pain Chronicity: acute Sciatica presence: without sciatica Qualified Code(s): M54.50 - Low back pain, unspecified Code(s): M54.9 - Dorsalgia, unspecified Status: Chronic Assessment and Plan: Secondary to metastatic lesions to a spine. Fentanyl 25 mcg patch Q72 hours PRN oxycodone 5 mg Q4 hours (5) Acute hyponatremia: Code(s): E87.1 - Hypo-osmolality and hyponatremia Status: Acute Assessment and Plan: Chronic, sodium 130. Give gentle hydration Trend sodium (6) Fever: Code(s): R50.9 - Fever, unspecified Status: Acute Assessment and Plan: Low grade temp in ED 100.7F UA negative infection CXR negative pneumonia No abd pain, N/V/D reported. No open wounds appreciated. Some jaw/mouth pain reported. Check facial CT r/o abscess. (7) Hypomagnesemia: Code(s): E83.42 - Hypomagnesemia Status: Acute Assessment and Plan: Magnesium 1.3 this morning and replaced we 3g magnesium sulfate. continue to monitor Plan CODE STATUS: FULL CODE Disposition: observation Discharge plan: SNF Time Spent With Patient Time with patient: Greater than 35 minutes Subjective Date/time seen: 10/04/22 10:22 Interval history: 67-year-old male with a history of metastatic prostate cancer admitted due to generalized weakness and pain. Patient is not compliant and resistant with nursing staff and myself. Patient is not willing to answer any of my questions although is able to speak because he tells me he does not want to talk to me. Unable to complete review of systems due to lack of patient cooperation. Will try again tomorrow. Review of Systems Review of Systems: ROS unobtainable: Yes other (Refused to answer questions) Exam Narrative: GENERAL: Comfortable, no acute distress, ill-appearing, very thin HENMT: moist mucous membranes EYES: EOM intact b/l NECK: no lymphadenopathy RESPIRATORY: clear to auscultation CARDIO: RRR GI: soft, tender, bowel sounds present SKIN: no rashes EXTREMITIES: no edema, redness or tenderness Objective Data Vital Signs Vital Signs: Vital Signs - 24 hr 10/03/22 17:10 10/03/22 20:31 10/03/22 20:00 Temperature 97.7 F 97.8 F Pulse Rate 115 H 116 H Respiratory Rate 18 12 Blood Pressure 115/72 116/71 Pulse Oximetry 97 96 Oxygen Delivery Room Air Intake/Output Intake/Output: Intake & Output 10/01/22 10/02/22 10/03/22 10/04/22 23:59 23:59 23:59 23:59 Intake Total 5000 120 Output Total 200 400 Balance 4800 -280 Meds/Results Medications: Active Medications Generic Name Dose Route Start Last Admin Trade Name Freq PRN Reason Stop Dose Admin Bisacodyl 10 mg 10/03/22 10:00 Bisacodyl 10 Mg Suppository RECTAL QAM PRN Constipation Fentanyl 2
[2022-10-04 14:00] VITALS: BP 107/62; PULSE 104; RESP 16; O2SAT 96
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
[2022-10-04] MEDS: oxyCODONE HCL (*CRX) 5 MG TAB IR PO (19:52)
[2022-10-04 22:00] VITALS: BP 108/71; PULSE 101; RESP 18; TEMP 36.6; O2SAT 98
[2022-10-05] VITALS (7 sets, daily range): BP systolic 99–107; BP diastolic 59–68; PULSE 99–106; RESP 16–18; TEMP 36.9–37.2; O2SAT 98–100
[2022-10-05] MEDS: oxyCODONE HCL (*CRX) 5 MG TAB IR PO ×3 (04:00→21:30)
[2022-10-05 05:40] LABS: Basophils Percent Auto 0.2 % (0.2-1.2); Hematocrit 22.3 % (42.0-52.0); Immature Granulocyte Absolute 0.03 K/mm3 (0.00-0.031); Immature Granulocyte Percent A 0.6 % (0-0.5); Lymphocytes Absolute Auto 0.92 K/mm3 (0.9-3.2); Lymphocytes Percent Auto 18.9 % (18.3-44.2); Mean Corpuscular HGB Conc 31.8 g/dl (32-36); Monocytes Absolute Auto 0.6 K/mm3 (0.1-0.6); Monocytes Percent Auto 12.1 % (2.6-8.5); Neutrophils Absolute Auto 3.3 K/mm3 (1.3-6.7); Neutrophils Percent Auto 68.2 % (45.5-73.1); Platelet Count Result 113 k/mm3 (150-375); Red Blood Count 2.45 M/mm3 (4.6-6.20); White Blood Count 4.9 K/mm3 (4.5-10.0)
[2022-10-05 05:51] LABS: Hemoglobin 7.1 g/dL (14.0-18.0)
[2022-10-05 05:57] LABS: Anion Gap 7 mmol/L (8-16); Blood Urea Nitrogen 16 mg/dL (9-20); Calcium 8.2 mg/dL (8.4-10.2); Carbon Dioxide 27 mmol/L (22-30); Chloride 94 mmol/L (98-107); Estimated CRCL calculation 100 ml/min; Estimated Glomerular Filt Rate > 60; Glucose 121 mg/dL (65-110); Potassium 3.8 mmol/L (3.4-5.0); Sodium 128 mmol/L (137-145)
--- NOTE | 2022-10-05 06:41 | PC.NURSE ---
Pt has been refusing care all night including his medication and fluids, except his prn pain medication. Pt's AM lab resulted in low Hgb of 7.1 and pt was explained the medical consequences if refuses blood transfusion. Pt did agree to have blood transfusion. Consent was signed and order for 1 unit RBC with type and screen has been entered. Will continue to monitor pt's further changes.
--- NOTE | 2022-10-05 09:36 | PM.DS ---
DS: Admitting Diagnosis Discharge Date 10/06/22 Admitting Diagnosis Weakness, metastatic prostate cancer DS: Discharge Diagnosis Discharge Diagnosis (1) Physical debility: Code(s): R53.81 - Other malaise Status: Acute (2) Metastatic disease: Code(s): C79.9 - Secondary malignant neoplasm of unspecified site Status: Acute (3) Adult failure to thrive: Code(s): R62.7 - Adult failure to thrive Status: Acute (4) Back pain: Qualifiers: Back pain laterality: bilateral Back pain location: low back pain Chronicity: acute Sciatica presence: without sciatica Qualified Code(s): M54.50 - Low back pain, unspecified Code(s): M54.9 - Dorsalgia, unspecified Status: Chronic (5) Acute hyponatremia: Code(s): E87.1 - Hypo-osmolality and hyponatremia Status: Acute (6) Fever: Code(s): R50.9 - Fever, unspecified Status: Acute (7) Hypomagnesemia: Code(s): E83.42 - Hypomagnesemia Status: Acute (8) Anemia: Code(s): D64.9 - Anemia, unspecified Status: Acute DS: Summary Hospital Course Reason for hospitalization: Generalized weakness, metastatic prostate cancer Hospital Course: 67-year-old male with known metastatic prostate cancer who presented to the ER with chief complaint of pain all over, weakness and body aches. Patient had been previously admitted in to [facility] 1 month ago was found to have progression of his metastatic prostate cancer disease with bone Mets. Patient was advised to follow up with Oncology as an outpatient and failed to go to that appointment. Patient has been extensively talked to about benefits of hospice but it he refuses. Patient takes ibuprofen for pain. Oncology was consulted and followed the patient. Patient refused most of his medication in help from the nurses during his stay. He was not cooperative with [facility] staff. Patient had refused to communicate most of the time while he stayed here but when he did communicate he was very aggressive. Patient had a hemoglobin of 6.8 on 10/05/2022 and was given 1 unit of PRBC. Since patient received transfusion his hemoglobin and hematocrit have remained stable. Patient recommended to follow up with Oncology as an outpatient. Time Spent with Patient Time attestation: Total time spent providing and/or coordinating discharge services: DS: Data Data Completed and Pending Labs on day of discharge: Labs from last 24 hours 10/05/22 10/05/22 10/05/22 06:49 05:32 05:32 WBC 4.9 RBC 2.45 L Hgb 7.1 L Hct 22.3 L MCV 91.0 MCH 29.0 MCHC 31.8 L RDW 18.0 H Plt Count 113 L MPV 9.0 Immature Gran % (Auto) 0.6 H Neut % (Auto) 68.2 Lymph % (Auto) 18.9 [place] % (Auto) 12.1 H Eos % (Auto) 0.0 Baso % (Auto) 0.2 Lymph # (Auto) 0.92 [place] # (Auto) 0.6 Eos # (Auto) 0.0 Baso # (Auto) 0.0 Abs Immat Gran (auto) 0.03 Absolute Neuts (auto) 3.3 Absolute Nucleated RBC 0.0 Nucleated RBC % 0.0 Sodium 128 L Potassium 3.8 Chloride 94 L Carbon Dioxide 27 Anion Gap 7 L BUN 16 Creatinine 0.60 L Estim Creat Clear Calc 100 Estimated GFR > 60 Glucose 121 H Calcium 8.2 L Blood Type A Positive Antibody Screen Negative Crossmatch See Detail Preliminary micro results at discharge 10/02/22 20:02 Blood Culture - Preliminary Blood 10/02/22 20:02 Blood Culture - Preliminary Blood Discharge Plan Discharge Attending physician on discharge: Katie De La Rosa Consulting providers: Manjit Spears Discharging Clinician: Ligia Bruner Patient Disposition: SNF Activity: as tolerated Diet: as tolerated Discharge Instructions: Discharge disposition: Take medications as prescribed Monitor blood pressures Avoid social areas, you wear a mask when in social settings Encouraged to continue with yearly vaccinations Retur
--- NOTE | 2022-10-05 09:36 | PC.NURSE ---
pt refusing all medications. pt now refusing blood transfusion. pt plugs his ears when RN walks in the room. hospitalist notified
[2022-10-05 12:02] LABS: Hematocrit 22.5 % (42.0-52.0)
[2022-10-05 12:10] LABS: Hemoglobin 6.8 g/dL (14.0-18.0)
--- NOTE | 2022-10-05 12:31 | PC.NURSE ---
Pt is now agreeable to a blood transfusion. Consent form signed by pt. Hospitalist notified
--- NOTE | 2022-10-05 13:08 | PM.IMPN ---
Progress Note: A&P Assessment and Plan (1) Physical debility: Code(s): R53.81 - Other malaise Status: Acute Assessment and Plan: likely secondary to disease progression patient is known to have metastatic prostate cancer will likely benefit from hospice but he is resistant at this time. Care coordination consulted and pt agreeable to SNF PT/OT consult. supportive care Patient refused most of his medication and the help nurses are willing to give. Patient is and not cooperative with [facility] staff. When asking the patient if he is able to communicate he does not respond. Every once well when he does respond he is combative and aggressive. (2) Metastatic disease: Code(s): C79.9 - Secondary malignant neoplasm of unspecified site Status: Acute Assessment and Plan: metastatic prostate cancer Patient was supposed to be following up with Dr. Jessi rosa as an outpatient to get treatment for his cancer but has failed to do so. Dr. Spears consulted and has been treating the patient. Although he has refused most of his meds. (3) Adult failure to thrive: Code(s): R62.7 - Adult failure to thrive Status: Acute Assessment and Plan: likely secondary to deconditioning and disease progression As above Consult dietitian (4) Back pain: Qualifiers: Back pain laterality: bilateral Back pain location: low back pain Chronicity: acute Sciatica presence: without sciatica Qualified Code(s): M54.50 - Low back pain, unspecified Code(s): M54.9 - Dorsalgia, unspecified Status: Chronic Assessment and Plan: Secondary to metastatic lesions to a spine. Fentanyl 25 mcg patch Q72 hours PRN oxycodone 5 mg Q4 hours (5) Acute hyponatremia: Code(s): E87.1 - Hypo-osmolality and hyponatremia Status: Acute Assessment and Plan: Chronic, sodium 130. Give gentle hydration Trend sodium (6) Fever: Code(s): R50.9 - Fever, unspecified Status: Acute Assessment and Plan: Low grade temp in ED 100.7F UA negative infection CXR negative pneumonia No abd pain, N/V/D reported. No open wounds appreciated. Some jaw/mouth pain reported. Check facial CT r/o abscess. 10/05/[address] impression erosive changes in the and jaw, osteomyelitis versus. Periodontal disease. Metastatic disease visualized in cervical spine. No abscess evident. Patient has been fever free for 2 days (7) Hypomagnesemia: Code(s): E83.42 - Hypomagnesemia Status: Acute Assessment and Plan: Magnesium 1.3 this morning and replaced we 3g magnesium sulfate. continue to monitor (8) Anemia: Code(s): D64.9 - Anemia, unspecified Status: Acute Assessment and Plan: Patient's hemoglobin this morning was 7.1. Hemoglobin recheck at 1:00 p.m. was 6.8 1 unit of PRBC infused Recheck H&H 1 hour after transfusion is completed Trend H&H Plan CODE STATUS: FULL CODE Disposition: observation Discharge plan: SNF Time Spent With Patient Time with patient: Greater than 35 minutes Subjective Date/time seen: 10/05/22 13:08 Interval history: 67-year-old male with a history of metastatic prostate cancer admitted due to generalized weakness and pain. Patient is not compliant and resistant with nursing staff and myself. Patient does talk to me today although he is aggressive and combative. Patient denies chest pain, nausea, vomiting, shortness of breath and fever. Patient states that he is still having pain all over. Review of Systems Review of Systems: All systems reviewed & are unremarkable except as noted in HPI and below Exam Narrative: GENERAL: Comfortable, no acute distress, ill-appearing, very thin HENMT: moist mucous membranes, poor dentition EYES: EOM intact b/l NECK: no lymphadenopathy RESPIRATORY: clear to auscultation CARDIO: RRR GI: soft, tender, bowel sounds present SKIN: no rashes EXTREM
[2022-10-05] MEDS: SODIUM CHLORIDE 0.9% IV 250 ML 30 ML IV CONT (13:27)
[2022-10-05] MEDS: SODIUM CHLORIDE 0.9% IV 1,000 ML 125 ML IV CONT (16:46)
[2022-10-05 17:52] LABS: Hematocrit 26.7 % (42.0-52.0); Hemoglobin 8.4 g/dL (14.0-18.0)
[2022-10-05] MEDS: HYDROmorphone HCL INJ (*CRX) 1 MG/ML SYR 0.5 MG IV PUSH (20:00)
[2022-10-06] MEDS: HYDROmorphone HCL INJ (*CRX) 1 MG/ML SYR 0.5 MG IV PUSH ×2 (00:57→06:45)
[2022-10-06] MEDS: SODIUM CHLORIDE 0.9% IV 1,000 ML 125 ML IV CONT ×2 (00:59→08:58)
[2022-10-06] MEDS: oxyCODONE HCL (*CRX) 5 MG TAB IR PO ×3 (03:08→16:38)
[2022-10-06 06:00] VITALS: BP 101/61; PULSE 98; RESP 16; TEMP 36.9; O2SAT 99
[2022-10-06 07:32] LABS: Basophils Percent Auto 0.2 % (0.2-1.2); Eosinophils Percent Auto 0.2 % (0-4.4); Hematocrit 26.9 % (42.0-52.0); Hemoglobin 8.5 g/dL (14.0-18.0); Immature Granulocyte Absolute 0.02 K/mm3 (0.00-0.031); Immature Granulocyte Percent A 0.4 % (0-0.5); Lymphocytes Absolute Auto 1.26 K/mm3 (0.9-3.2); Lymphocytes Percent Auto 25.2 % (18.3-44.2); Mean Corpuscular HGB Conc 31.6 g/dl (32-36); Mean Corpuscular Hemoglobin 28.7 pg (26-34); Mean Corpuscular Volume 90.9 fl (80-100); Mean Platelet Volume 9.3 fl (7.4-10.4); Monocytes Absolute Auto 0.4 K/mm3 (0.1-0.6); Monocytes Percent Auto 7.6 % (2.6-8.5); Neutrophils Absolute Auto 3.3 K/mm3 (1.3-6.7); Neutrophils Percent Auto 66.4 % (45.5-73.1); Platelet Count Result 139 k/mm3 (150-375); Red Blood Count 2.96 M/mm3 (4.6-6.20); Red Cell Distribution Width 18.1 % (11.5-14.5)
[2022-10-06 07:46] LABS: Alanine Aminotransferase 17 U/L (6-50); Albumin Level 3.5 g/dL (3.5-5.1); Alkaline Phosphatase 240 U/L (38-126); Anion Gap 9 mmol/L (8-16); Aspartate Amino Transferase 64 U/L (17-59); Bilirubin,Total 0.9 mg/dL (0.2-1.3); Blood Urea Nitrogen 12 mg/dL (9-20); Calcium 8.2 mg/dL (8.4-10.2); Carbon Dioxide 26 mmol/L (22-30); Chloride 97 mmol/L (98-107); Estimated CRCL calculation 143 ml/min; Estimated Glomerular Filt Rate > 60; Glucose 129 mg/dL (65-110); Magnesium 1.7 mg/dL (1.6-2.3); Sodium 132 mmol/L (137-145)
[2022-10-06] MEDS: fentaNYL (*CRX) 25 MCG PATCH TRANSDERM (09:03)
[2022-10-06] MEDS: POTASSIUM CHLORIDE 20 MEQ PACKET (FOR LIQUID) 40 MEQ PO (09:07)
[2022-10-06 14:00] VITALS: BP 101/58; PULSE 113; RESP 18; TEMP 36.6; O2SAT 99
[2022-10-06 14:31] LABS: EDCOVIDSCREEN Negative (Negative)
== END 2022-10-06 17:35 | DRG 343 ==
LOC: ANHED 23:24 → ANH3MEDSUR 23:49 → ANH3MED 10-03 15:38
PROVIDERS: Internal Medicine Critical Care Medicine; Nurse Practitioner Family; Admitting Provider Internal Medicine; Emergency Provider General Practice; PCP Internal Medicine; Visit Provider Student in an Organized Health Care Education/Training Program
DX: C79.51 Secondary malignant neoplasm of bone (principal); R64 Cachexia; E46 Unspecified protein-calorie malnutrition; E87.1 Hypo-osmolality and hyponatremia; E83.42 Hypomagnesemia; G89.3 Neoplasm related pain (acute) (chronic); D63.0 Anemia in neoplastic disease; D64.9 Anemia, unspecified; R68.84 Jaw pain; R62.7 Adult failure to thrive; R53.81 Other malaise; Z20.822 Contact with and (suspected) exposure to COVID-19; Z85.46 Personal history of malignant neoplasm of prostate; Z68.23 Body mass index [BMI] 23.0-23.9, adult; Z91.199 Patient's noncompliance with other medical treatment and regimen due to unspecified reason
CPT/HCPCS: 36415; 36430; 70450; 70487; 71045; 72131; 80048; 80053; 81001; 82607; 82746; 83605; 83735; 84443; 85014; 85018; 85025; 85610; 85730; 86140; 86850; 86900; 86901; 86923; 87040; 87426; 87636; 93005; 96361; 96374; 97161; 97165; 99285; A9270; C9803; G0378; G0379; J1170; J7030; J7050; P9016; Q9967

== ENCOUNTER 2023-05-25 16:09 | Inpatient (IN) | payer OTHER, SELFPAY ==
[2023-05-25] VITALS (15 sets, daily range): BP systolic 88–100; BP diastolic 58–72; PULSE 82–100; RESP 16–31; TEMP 36.6; O2SAT 95–100
--- NOTE | ~2023-05-25 | XR_ITS ---
EXAMINATION: XR chest 1V portable Exam Date/Time: 05/25/2023 22:00 CDT HISTORY: fatigue Comparison: 10/02/2022. RESULT: Lines, tubes, and devices: None. Lungs and pleura: Clear. Cardiomediastinal silhouette: Stable. Other: No acute osseous or upper abdominal finding. Diffuse osseous sclerosis. IMPRESSION: No acute cardiopulmonary process. Extensive osteosclerotic metastatic disease. Reviewed, dictated and finalized at location K.
[2023-05-25 16:30] LABS: Basophils Percent Auto 0.5 % (0.2-1.2); Eosinophils Percent Auto 0.6 % (0-4.4); Hematocrit 33.7 % (42.0-52.0); Immature Granulocyte Absolute 0.02 K/mm3 (0.00-0.031); Immature Granulocyte Percent A 0.3 % (0-0.5); Lymphocytes Absolute Auto 1.89 K/mm3 (0.9-3.2); Lymphocytes Percent Auto 28.9 % (18.3-44.2); Mean Corpuscular HGB Conc 32.6 g/dl (32-36); Mean Corpuscular Hemoglobin 28.9 pg (26-34); Mean Corpuscular Volume 88.7 fl (80-100); Mean Platelet Volume 9.2 fl (7.4-10.4); Monocytes Absolute Auto 0.5 K/mm3 (0.1-0.6); Monocytes Percent Auto 7.8 % (2.6-8.5); Neutrophils Percent Auto 61.9 % (45.5-73.1); Platelet Count Result 277 k/mm3 (150-375); Red Cell Distribution Width 15.7 % (11.5-14.5); White Blood Count 6.5 K/mm3 (4.5-10.0)
[2023-05-25 16:40] LABS: Alanine Aminotransferase 22 U/L (6-50); Albumin Level 4.8 g/dL (3.5-5.1); Alkaline Phosphatase 146 U/L (38-126); Anion Gap 14 mmol/L (8-16); Aspartate Amino Transferase 54 U/L (17-59); Blood Urea Nitrogen 13 mg/dL (9-20); Calcium 10.2 mg/dL (8.4-10.2); Carbon Dioxide 24 mmol/L (22-30); Chloride 91 mmol/L (98-107); Estimated CRCL calculation 63 ml/min; Estimated Glomerular Filt Rate > 60; Glucose 107 mg/dL (65-110); Potassium 4.2 mmol/L (3.4-5.0); Sodium 129 mmol/L (137-145)
--- NOTE | 2023-05-25 20:55 | PC.NURSE ---
ERP Dr Gary at bedside at this time.
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
[2023-05-25] MEDS: LACTATED RINGERS 1,000 ML 999 ML IV CONT (22:24)
[2023-05-25] MEDS: ACETAMINOPHEN 500 MG TABLET 1000 MG PO (22:24)
[2023-05-25] MEDS: ONDANSETRON INJ 4 MG/2 ML VIAL IV PUSH (22:25)
[2023-05-25 22:37] LABS: Appearance Urine Clear (Clear); Bacteria Urine None Seen /hpf; Bilirubin Urine 2+ (Negative); Blood Urine Negative (Negative); Color Urine Dark Yellow (Yellow); Glucose Urine UA Negative (Negative); Ketones Urine 2+ mg/dL (Negative); Leukocyte Esterase Ur Trace LEU/UL (Negative); Nitrate Urine Negative (Negative); Protein Urine 2+ mg/dL (Negative); RBC Urine 0-2 /hpf (0-2); Specific Grav Ur 1.022 (1.001-1.035); Squamous Epithelial Cell Urine None seen /hpf (Few); WBC Urine 0-5 /hpf; pH Urine 5.5 (5.0-9.0)
[2023-05-25 23:05] LABS: Add Urine Microscopic? YES
[2023-05-25 23:12] LABS: Troponin I < 0.012 ng/mL (0.000-0.034)
--- NOTE | 2023-05-25 23:19 | PC.NURSE ---
This RN assumed care of patient. This RN took patient report from BRIANNE Roman.
[2023-05-25 23:21] LABS: Magnesium 1.5 mg/dL (1.6-2.3)
--- NOTE | 2023-05-25 23:41 | ECG_ITS ---
Measurements Intervals [place] Rate: 81 P: 61 AL: 184 QRS: -21 QRSD: 84 T: -2 QT: 416 QTc: 483 Interpretive Statements SINUS RHYTHM BORDERLINE LEFT AXIS DEVIATION [QRS AXIS < -20] POSSIBLE RIGHT VENTRICULAR CONDUCTION DELAY [RSR (QR) IN V1/V2] NONSPECIFIC T-WAVE ABNORMALITY ABNORMAL ECG COMPARED TO ECG 10/02/2022 19:26:02 SINUS RHYTHM NOW PRESENT T-WAVE ABNORMALITY NOW PRESENT Electronically Signed On 05-26-2023 12:40:15 CDT by Tyler David M.D.
[2023-05-26] VITALS (7 sets, daily range): BP systolic 98–173; BP diastolic 67–77; PULSE 73–87; RESP 16–22; TEMP 36.4–36.8; O2SAT 98–100
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
[2023-05-26] MEDS: diphenhydrAMINE HCl CAP 25 MG CAPSULE 50 MG PO ×2 (00:20→23:46)
[2023-05-26] MEDS: MAGNESIUM SULF 2 GM/WATER 50ML 2 GM/50 ML BAG IVPB ×2 (00:21→15:19)
--- NOTE | 2023-05-26 01:43 | ADMGEN ---
This patient, Cristopher Nice, was admitted to Medical Room 257-01. Patient/family oriented to hospital policies and general routines including ID bracelet, bed and alarms, visiting hours, pain management, procedures, bathroom and other care routines, personal items, smoking policy, room service/diet, and visiting hours. Information on how to activate the Rapid Response Team has been discussed. Patient/Family are encouraged to report perceived risks to care and to ask questions if they do not understand what they are told or what they should do.
--- NOTE | 2023-05-26 01:45 | PC.NURSE ---
ASKED PT ABOUT HOME MEDS. PT STATED HE ONLY TOOK ONE PILL THEN HANDED ME A MEDICINE BOTTLE. PRESCRIPTION WAS FOR A 30 DAY SUPPLY OF BICALUTAMIDE AND THE BOTTLE WAS STILL FULL. IT SEEMS PT IS CURRENTLY UNABLE TO OBTAIN MEDS AND MAKE IT TO DR APPOINTMENTS.
[2023-05-26] MEDS: polyethylene glycoL 3350 17 GM POWD.PACK PO (11:40)
[2023-05-26] MEDS: MAGNESIUM HYDROXIDE SUSP 30 ML UDC PO (11:40)
[2023-05-26] MEDS: HYDROcodone/acetaminophen (*CRX) 5-325 MG TABLET 1 TAB PO ×2 (11:40→21:22)
--- NOTE | 2023-05-26 14:28 | PM.IMPN ---
Progress Note: A&P Assessment and Plan (1) Adult failure to thrive: Code(s): R62.7 - Adult failure to thrive Status: Acute (2) Metastatic disease: Code(s): C79.9 - Secondary malignant neoplasm of unspecified site Status: Acute (3) Physical debility: Code(s): R53.81 - Other malaise Status: Acute (4) Back pain: Qualifiers: Back pain laterality: bilateral Back pain location: low back pain Chronicity: acute Sciatica presence: without sciatica Qualified Code(s): M54.50 - Low back pain, unspecified Code(s): M54.9 - Dorsalgia, unspecified Status: Chronic Plan 68-year-old male presented with generalized weakness and diffuse pain. Last seen any physician in October 2022. Lives alone. Progressive difficulty ambulating. Also reports ongoing constipation for past several days. Reported nausea. On morphine extended release tablet for pain control at home. Diagnosis of metastatic prostate cancer. Vitals are stable. Failure to thrive unable to take care of himself lost follow-up his medical team. PT OT to see. And start laxative. Pain control with [place] p.r.n. labs were reviewed. Mild anemia and mild hyponatremia hypo magnesemia TSH normal UA is negative for infection chest x-ray negative Subjective Date/time seen: 05/26/23 14:28 Interval history: complains of pain all over. He has followed up with his doctor as an outpatient. Was at [facility] in October. Chronic pain due to metastatic prostate cancer. Has not been following up with his cancer specialist as well. Complains of constipation Review of Systems Review of Systems: All systems reviewed & are unremarkable except as noted in HPI and below Exam Narrative: GENERAL: The patient is thin built, not in acute distress HEENT: Nonicteric sclerae, PERRLA, EOMI. Oropharynx clear. Moist mucous membranes. Conjunctivae appear well perfused. CHEST: Chest wall is nontender. HEART: Regular rate and rhythm without murmur, rubs, or gallops LUNGS: Clear to auscultation bilaterally. no respiratory distress ABDOMEN: Soft, positive bowel sounds, non-tender, no organomegaly. SKIN: No rash, no excessive bruising, petechiae, or purpura. NEUROLOGIC: Cranial nerves II-XII intact, alert and oriented x 3, no gross motor deficits EXTREMITIES: no edema, cyanosis or clubbing Objective Data Vital Signs Vital Signs: Vital Signs - 24 hr 05/25/23 16:09 05/25/23 20:16 05/25/23 20:30 Temperature 97.9 F Pulse Rate 93 85 90 Respiratory Rate 16 26 H 19 Blood Pressure 100/72 Pulse Oximetry 100 95 Oxygen Delivery Room Air 05/25/23 22:26 05/25/23 20:45 05/25/23 21:10 Temperature Pulse Rate 82 89 88 Respiratory Rate 21 H 21 H Blood Pressure Pulse Oximetry 100 98 Oxygen Delivery 05/25/23 21:15 05/25/23 21:31 05/25/23 21:45 Temperature Pulse Rate 87 96 100 Respiratory Rate 31 H 17 19 Blood Pressure Pulse Oximetry 100 98 Oxygen Delivery 05/25/23 22:00 05/25/23 22:25 05/25/23 22:31 Temperature Pulse Rate 84 87 93 Respiratory Rate 18 24 H 23 H Blood Pressure Pulse Oximetry Oxygen Delivery 05/25/23 22:48 05/25/23 23:00 05/25/23 23:01 Temperature Pulse Rate 90 87 87 Respiratory Rate 19 23 H 21 H Blood Pressure 88/58 L Pulse Oximetry Oxygen Delivery 05/26/23 00:01 05/26/23 00:46 05/26/23 01:00 Temperature Pulse Rate 85 83 77 Respiratory Rate 22 H 17 18 Blood Pressure 98/68 L 173/73 H Pulse Oximetry 98 Oxygen Delivery 05/26/23 01:55 05/26/23 02:02 05/26/23 08:45 Temperature 97.6 F Pulse Rate 73 Respiratory Rate 18 Blood Pressure 115/73 Pulse Oximetry 98 Oxygen Delivery Room Air Room Air 05/26/23 11:38 05/26/23 14:00 Temperature 97.8 F Pulse Rate 79 76 Respiratory Rate 16 18 Blood Pressure 111/77 115/67 Pulse Oximetry 100 100 Oxygen Delivery Intake/Output Intake/Output: Intake & Output 05/23/23
[2023-05-26] MEDS: ACETAMINOPHEN 325 MG TABLET 650 MG PO (15:19)
[2023-05-26] MEDS: BISACODYL 10 MG SUPPOSITORY RECTAL (15:28)
[2023-05-26 20:23] LABS: Glucose Point of Care 151 mg/dl (65-105)
[2023-05-27] MEDS: ACETAMINOPHEN 325 MG TABLET 650 MG PO ×2 (04:09→13:45)
[2023-05-27 05:24] LABS: Basophils Percent Auto 0.3 % (0.2-1.2); Eosinophils Percent Auto 0.3 % (0-4.4); Hematocrit 28.4 % (42.0-52.0); Hemoglobin 9.3 g/dL (14.0-18.0); Immature Granulocyte Absolute 0.02 K/mm3 (0.00-0.031); Immature Granulocyte Percent A 0.3 % (0-0.5); Lymphocytes Absolute Auto 1.25 K/mm3 (0.9-3.2); Lymphocytes Percent Auto 20.9 % (18.3-44.2); Mean Corpuscular HGB Conc 32.7 g/dl (32-36); Mean Corpuscular Hemoglobin 28.9 pg (26-34); Mean Corpuscular Volume 88.2 fl (80-100); Mean Platelet Volume 9.4 fl (7.4-10.4); Monocytes Absolute Auto 0.7 K/mm3 (0.1-0.6); Monocytes Percent Auto 10.9 % (2.6-8.5); Neutrophils Percent Auto 67.3 % (45.5-73.1); Platelet Count Result 212 k/mm3 (150-375); Red Blood Count 3.22 M/mm3 (4.6-6.20); Red Cell Distribution Width 15.2 % (11.5-14.5)
[2023-05-27 05:41] LABS: Alanine Aminotransferase 16 U/L (6-50); Alkaline Phosphatase 115 U/L (38-126); Anion Gap 7 mmol/L (8-16); Aspartate Amino Transferase 38 U/L (17-59); Bilirubin,Total 0.5 mg/dL (0.2-1.3); Blood Urea Nitrogen 12 mg/dL (9-20); Calcium 9.3 mg/dL (8.4-10.2); Carbon Dioxide 28 mmol/L (22-30); Chloride 96 mmol/L (98-107); Estimated CRCL calculation 79 ml/min; Estimated Glomerular Filt Rate > 60; Glucose 117 mg/dL (65-110); Magnesium 2.1 mg/dL (1.6-2.3); Potassium 4.1 mmol/L (3.4-5.0); Sodium 131 mmol/L (137-145)
[2023-05-27 06:00] VITALS: BP 98/61; PULSE 75; RESP 18; TEMP 36.5; O2SAT 100
[2023-05-27] MEDS: polyethylene glycoL 3350 17 GM POWD.PACK PO (08:28)
[2023-05-27] MEDS: HYDROcodone/acetaminophen (*CRX) 5-325 MG TABLET 1 TAB PO ×3 (08:29→22:02)
--- NOTE | 2023-05-27 12:24 | PCOTNOTE ---
Attempted OT eval at 12:23, patient refused due to being tired. Will follow.
--- NOTE | 2023-05-27 13:37 | PM.IMPN ---
Progress Note: A&P Assessment and Plan (1) Adult failure to thrive: Code(s): R62.7 - Adult failure to thrive Status: Acute (2) Metastatic disease: Code(s): C79.9 - Secondary malignant neoplasm of unspecified site Status: Acute (3) Physical debility: Code(s): R53.81 - Other malaise Status: Acute (4) Back pain: Qualifiers: Back pain laterality: bilateral Back pain location: low back pain Chronicity: acute Sciatica presence: without sciatica Qualified Code(s): M54.50 - Low back pain, unspecified Code(s): M54.9 - Dorsalgia, unspecified Status: Chronic Plan 68-year-old male presented with generalized weakness and diffuse pain. Last seen any physician in October 2022. Lives alone. Progressive difficulty ambulating. Also reports ongoing constipation for past several days. Reported nausea. On morphine extended release tablet for pain control at home. Diagnosis of metastatic prostate cancer. Vitals are stable. Failure to thrive unable to take care of himself lost follow-up his medical team. PT OT to see. And start laxative. Pain control with [place] p.r.n. labs were reviewed. Mild anemia and mild hyponatremia hypo magnesemia TSH normal UA is negative for infection chest x-ray negative. Once up at home care coordination on board for home care set up needs to follow-up with PCP and oncologist. Subjective Date/time seen: 05/27/23 13:37 Interval history: no overnight events. Complains of pain in his right shoulder. He knows he has cancer all over his body and also arthritis. He is not willing to go to a rehab facility. He states he is not able to walk. PT OT has not seen him yet. He wants home transitional care liaison to set up. He is willing to follow up with his PCP and his oncologist. Review of Systems Review of Systems: All systems reviewed & are unremarkable except as noted in HPI and below Exam Narrative: GENERAL: The patient is thin built, not in acute distress HEENT: Nonicteric sclerae, PERRLA, EOMI. Oropharynx clear. Moist mucous membranes. Conjunctivae appear well perfused. CHEST: Chest wall is nontender. HEART: Regular rate and rhythm without murmur, rubs, or gallops LUNGS: Clear to auscultation bilaterally. no respiratory distress ABDOMEN: Soft, positive bowel sounds, non-tender, no organomegaly. SKIN: No rash, no excessive bruising, petechiae, or purpura. NEUROLOGIC: Cranial nerves II-XII intact, alert and oriented x 3, no gross motor deficits EXTREMITIES: no edema, cyanosis or clubbing Objective Data Vital Signs Vital Signs: Vital Signs - 24 hr 05/26/23 14:00 05/26/23 19:42 05/26/23 20:00 Temperature 97.8 F 98.2 F Pulse Rate 76 87 Respiratory Rate 18 18 Blood Pressure 115/67 132/77 Pulse Oximetry 100 100 Oxygen Delivery Room Air 05/27/23 06:00 Temperature 97.7 F Pulse Rate 75 Respiratory Rate 18 Blood Pressure 98/61 L Pulse Oximetry 100 Oxygen Delivery Intake/Output Intake/Output: Intake & Output 05/24/23 05/25/23 05/26/23 05/27/23 23:59 23:59 23:59 23:59 Intake Total 2320 240 Output Total 1450 Balance 870 240 Meds/Results Medications: Active Medications Generic Name Dose Route Start Last Admin Trade Name Freq PRN Reason Stop Dose Admin Acetaminophen 650 mg 05/26/23 15:01 05/27/23 04:09 Acetaminophen 325 Mg Tablet PO 650 mg Q6H PRN Administration Mild Pain (1-3) or Fever Hydrocodone Bitart/Acetaminophen 1 tab 05/26/23 11:07 05/27/23 08:29 Hydrocodone/Acetaminophen (*Crx) 5-325 Mg Tablet PO 1 tab Q4H PRN Administration Pain Rated 4-6 Bisacodyl 10 mg 05/27/23 09:00 Bisacodyl 10 Mg Suppository RECTAL QAM PRN Constipation Diphenhydramine HCl 50 mg 05/26/23 21:27 05/26/23 23:46 Diphenhydramine Hcl Cap 25 Mg Capsule PO 50 mg HS PRN Administration Insomnia Polyethylene Glycol 17 gm 05/26/23 09:00 05/27/23 08:28 Polyethylene
[2023-05-27 14:00] VITALS: BP 107/65; PULSE 74; RESP 16; TEMP 36.4; O2SAT 100
--- NOTE | 2023-05-27 14:04 | PC.NURSE ---
scientific writer reviewed Zari Londono charting/assessments and agree with findings
[2023-05-27 20:37] VITALS: BP 99/65; PULSE 77; RESP 17; TEMP 37.2; O2SAT 99
[2023-05-27] MEDS: diphenhydrAMINE HCl CAP 25 MG CAPSULE 50 MG PO (20:38)
[2023-05-28 02:05] VITALS: BP 103/66
[2023-05-28] MEDS: HYDROcodone/acetaminophen (*CRX) 5-325 MG TABLET 1 TAB PO ×4 (02:05→21:00)
[2023-05-28 05:22] LABS: Basophils Percent Auto 0.4 % (0.2-1.2); Eosinophils Percent Auto 0.4 % (0-4.4); Hematocrit 28.9 % (42.0-52.0); Hemoglobin 9.3 g/dL (14.0-18.0); Immature Granulocyte Absolute 0.01 K/mm3 (0.00-0.031); Immature Granulocyte Percent A 0.2 % (0-0.5); Mean Corpuscular HGB Conc 32.2 g/dl (32-36); Mean Corpuscular Hemoglobin 28.7 pg (26-34); Mean Corpuscular Volume 89.2 fl (80-100); Mean Platelet Volume 9.6 fl (7.4-10.4); Monocytes Absolute Auto 0.6 K/mm3 (0.1-0.6); Monocytes Percent Auto 10.8 % (2.6-8.5); Neutrophils Absolute Auto 3.2 K/mm3 (1.3-6.7); Neutrophils Percent Auto 60.2 % (45.5-73.1); Platelet Count Result 202 k/mm3 (150-375); Red Blood Count 3.24 M/mm3 (4.6-6.20); Red Cell Distribution Width 15.5 % (11.5-14.5); White Blood Count 5.4 K/mm3 (4.5-10.0)
[2023-05-28 05:31] VITALS: BP 100/62; PULSE 70; RESP 17; TEMP 36.3; O2SAT 96
[2023-05-28 05:39] LABS: Alanine Aminotransferase 14 U/L (6-50); Albumin Level 3.9 g/dL (3.5-5.1); Alkaline Phosphatase 108 U/L (38-126); Anion Gap 6 mmol/L (8-16); Aspartate Amino Transferase 28 U/L (17-59); Bilirubin,Total 0.5 mg/dL (0.2-1.3); Blood Urea Nitrogen 13 mg/dL (9-20); Calcium 9.4 mg/dL (8.4-10.2); Carbon Dioxide 26 mmol/L (22-30); Chloride 96 mmol/L (98-107); Estimated CRCL calculation 91 ml/min; Estimated Glomerular Filt Rate > 60; Glucose 117 mg/dL (65-110); Sodium 128 mmol/L (137-145)
[2023-05-28] MEDS: BICALUTAMIDE (*CHEMO) 50 MG TABLET PO (08:35)
[2023-05-28] MEDS: polyethylene glycoL 3350 17 GM POWD.PACK PO (08:35)
--- NOTE | 2023-05-28 13:51 | PM.IMPN ---
Progress Note: A&P Assessment and Plan (1) Adult failure to thrive: Code(s): R62.7 - Adult failure to thrive Status: Acute (2) Metastatic disease: Code(s): C79.9 - Secondary malignant neoplasm of unspecified site Status: Acute (3) Physical debility: Code(s): R53.81 - Other malaise Status: Acute (4) Back pain: Qualifiers: Back pain laterality: bilateral Back pain location: low back pain Chronicity: acute Sciatica presence: without sciatica Qualified Code(s): M54.50 - Low back pain, unspecified Code(s): M54.9 - Dorsalgia, unspecified Status: Chronic Plan 68-year-old male presented with generalized weakness and diffuse pain. Last seen any physician in October 2022. Lives alone. Progressive difficulty ambulating. Also reports ongoing constipation for past several days. Reported nausea. On morphine extended release tablet for pain control at home. Diagnosis of metastatic prostate cancer. Vitals are stable. Failure to thrive unable to take care of himself lost follow-up his medical team. PT OT to see. And start laxative. Pain control with [place] p.r.n. labs were reviewed. Mild anemia and mild hyponatremia hypo magnesemia TSH normal UA is negative for infection chest x-ray negative. Once up at home care coordination on board for home care set up needs to follow-up with PCP and oncologist. discussed with oncologist. Will initiate pain stable on hydrocodone p.r.n. needs to follow up with PCP for ongoing pain management and also oncologist for treatment of his metastatic prostate cancer also check his PSA level Subjective Date/time seen: 05/28/23 13:51 Interval history: no overnight events. Continues have some pain work with therapy. Wants to go home And not to the rehab. discussed with care coordination. Discussed with oncologist for follow-up for his Lupron injection treatment for his prostate cancer Review of Systems Review of Systems: All systems reviewed & are unremarkable except as noted in HPI and below Exam Narrative: GENERAL: The patient is thin built, not in acute distress HEENT: Nonicteric sclerae, PERRLA, EOMI. Oropharynx clear. Moist mucous membranes. Conjunctivae appear well perfused. CHEST: Chest wall is nontender. HEART: Regular rate and rhythm without murmur, rubs, or gallops LUNGS: Clear to auscultation bilaterally. no respiratory distress ABDOMEN: Soft, positive bowel sounds, non-tender, no organomegaly. SKIN: No rash, no excessive bruising, petechiae, or purpura. NEUROLOGIC: Cranial nerves II-XII intact, alert and oriented x 3, no gross motor deficits EXTREMITIES: no edema, cyanosis or clubbing Objective Data Vital Signs Vital Signs: Vital Signs - 24 hr 05/27/23 14:00 05/27/23 20:37 05/27/23 20:00 Temperature 97.6 F 98.9 F Pulse Rate 74 77 Respiratory Rate 16 17 Blood Pressure 107/65 99/65 L Pulse Oximetry 100 99 Oxygen Delivery Room Air 05/28/23 02:05 05/28/23 05:31 05/28/23 08:59 Temperature 97.4 F L Pulse Rate 70 Respiratory Rate 17 Blood Pressure 103/66 100/62 Pulse Oximetry 96 Oxygen Delivery Room Air 05/28/23 08:35 Temperature Pulse Rate Respiratory Rate Blood Pressure Pulse Oximetry Oxygen Delivery Room Air Intake/Output Intake/Output: Intake & Output 05/25/23 05/26/23 05/27/23 05/28/23 23:59 23:59 23:59 23:59 Intake Total 2320 820 240 Output Total 1450 700 400 Balance 870 120 -160 Meds/Results Medications: Active Medications Generic Name Dose Route Start Last Admin Trade Name Freq PRN Reason Stop Dose Admin Acetaminophen 650 mg 05/26/23 15:01 05/27/23 13:45 Acetaminophen 325 Mg Tablet PO 650 mg Q6H PRN Administration Mild Pain (1-3) or Fever Hydrocodone Bitart/Acetaminophen 1 tab 05/26/23 11:07 05/28/23 08:35 Hydrocodone/Acetaminophen (*Crx) 5-325 Mg Tablet PO 1 tab Q4H PRN Administration Pain Rated 4-6 [place]
[2023-05-28 14:00] VITALS: BP 135/74; PULSE 90; RESP 17; TEMP 36.7; O2SAT 100
[2023-05-28 20:54] VITALS: BP 110/64; PULSE 79; RESP 17; TEMP 37.1; O2SAT 97
[2023-05-28] MEDS: diphenhydrAMINE HCl CAP 25 MG CAPSULE 50 MG PO (21:00)
[2023-05-29] MEDS: HYDROcodone/acetaminophen (*CRX) 5-325 MG TABLET 1 TAB PO ×4 (01:08→15:53)
[2023-05-29 05:19] LABS: Basophils Percent Auto 0.6 % (0.2-1.2); Eosinophils Percent Auto 0.4 % (0-4.4); Hematocrit 28.5 % (42.0-52.0); Hemoglobin 9.2 g/dL (14.0-18.0); Immature Granulocyte Absolute 0.01 K/mm3 (0.00-0.031); Immature Granulocyte Percent A 0.2 % (0-0.5); Lymphocytes Absolute Auto 1.77 K/mm3 (0.9-3.2); Lymphocytes Percent Auto 37.3 % (18.3-44.2); Mean Corpuscular HGB Conc 32.3 g/dl (32-36); Mean Corpuscular Hemoglobin 29.3 pg (26-34); Mean Corpuscular Volume 90.8 fl (80-100); Mean Platelet Volume 9.7 fl (7.4-10.4); Monocytes Absolute Auto 0.4 K/mm3 (0.1-0.6); Monocytes Percent Auto 8.4 % (2.6-8.5); Neutrophils Absolute Auto 2.5 K/mm3 (1.3-6.7); Neutrophils Percent Auto 53.1 % (45.5-73.1); Platelet Count Result 232 k/mm3 (150-375); Red Blood Count 3.14 M/mm3 (4.6-6.20); Red Cell Distribution Width 15.7 % (11.5-14.5); White Blood Count 4.7 K/mm3 (4.5-10.0)
[2023-05-29 05:27] LABS: Alanine Aminotransferase 12 U/L (6-50); Alkaline Phosphatase 104 U/L (38-126); Anion Gap 7 mmol/L (8-16); Aspartate Amino Transferase 25 U/L (17-59); Bilirubin,Total 0.5 mg/dL (0.2-1.3); Blood Urea Nitrogen 13 mg/dL (9-20); Calcium 9.5 mg/dL (8.4-10.2); Carbon Dioxide 25 mmol/L (22-30); Chloride 97 mmol/L (98-107); Estimated CRCL calculation 91 ml/min; Estimated Glomerular Filt Rate > 60; Glucose 107 mg/dL (65-110); Sodium 129 mmol/L (137-145)
[2023-05-29 05:34] VITALS: BP 112/82; PULSE 76; RESP 18; TEMP 36.7; O2SAT 100
[2023-05-29 05:48] LABS: Anisocytosis 1+ (NORMAL); Platelet Estimate Adequate (Adequate); Poikilocytosis 1+ (NORMAL); Schistocytes Rare (NORMAL)
[2023-05-29] MEDS: BICALUTAMIDE (*CHEMO) 50 MG TABLET PO (09:29)
[2023-05-29] MEDS: polyethylene glycoL 3350 17 GM POWD.PACK PO (09:30)
--- NOTE | 2023-05-29 09:56 | P.CDI_ITS ---
severe CDI Query Clarification Request BMI 20.0 Nutritional Diagnostic Statement Severe protein calorie malnutrition related to chronic cancer, as evidenced by inadequate oral intake < 75% needs > 1 month: weight loss not meeting ASPEN criteria for malnutrition; NFPE findings severe muscle wasting and fat loss. Please refer to the comprehensive nutrition assessment for further information. Please clarify severity of protein calorie malnutrition if known: * Mild * Moderate * Severe * Other unspecified
[2023-05-29 14:10] VITALS: BP 110/70; PULSE 81; RESP 18; TEMP 36.4; O2SAT 98
--- NOTE | 2023-05-29 15:35 | PM.DS ---
DS: Admitting Diagnosis Discharge Date 05/29/2023 Admitting Diagnosis Generalized pain DS: Discharge Diagnosis Discharge Diagnosis (1) Adult failure to thrive: Code(s): R62.7 - Adult failure to thrive Status: Acute (2) Metastatic disease: Code(s): C79.9 - Secondary malignant neoplasm of unspecified site Status: Acute (3) Physical debility: Code(s): R53.81 - Other malaise Status: Acute (4) Back pain: Qualifiers: Back pain laterality: bilateral Back pain location: low back pain Chronicity: acute Sciatica presence: without sciatica Qualified Code(s): M54.50 - Low back pain, unspecified Code(s): M54.9 - Dorsalgia, unspecified Status: Chronic DS: Summary Hospital Course Hospital Course: ?68-year-old male presented with generalized weakness and diffuse pain.? Last seen any physician in October 2022.? Lives alone.? Progressive difficulty ambulating.? Also reports ongoing constipation for past several days.? Reported nausea.? On morphine extended release tablet for pain control at home.? Diagnosis of metastatic prostate cancer.? Vitals are stable.? Failure to thrive unable to take care of himself lost follow-up his medical team.? PT OT evaluated the patient fairly well use of wheeled walker. Started on laxative.? Pain control with [place] p.r.n. labs were reviewed.? Mild anemia and mild hyponatremia hypo magnesemia TSH normal UA is negative for? infection chest x-ray negative.? Care coordination on board for home care set up. Home health was set up at discharge. He will need to follow up with PCP oncologist. Discussed with oncologist.? Initiated pain control with hydrocodone p.r.n.. Casodex was also resumed for his metastatic prostate cancer. He will need to follow-up Oncology for ongoing management Time Spent with Patient Time attestation: Total time spent providing and/or coordinating discharge services: Exam Narrative: GENERAL: The patient is thin built, not in acute distress HEENT: Nonicteric sclerae, PERRLA, EOMI. Oropharynx clear. Moist mucous membranes. Conjunctivae appear well perfused. CHEST: Chest wall is nontender. HEART: Regular rate and rhythm without murmur, rubs, or gallops LUNGS: Clear to auscultation bilaterally. no respiratory distress ABDOMEN: Soft, positive bowel sounds, non-tender, no organomegaly. SKIN: No rash, no excessive bruising, petechiae, or purpura. NEUROLOGIC: Cranial nerves II-XII intact, alert and oriented x 3, no gross motor deficits EXTREMITIES: no edema, cyanosis or clubbing DS: Data Data Completed and Pending Labs on day of discharge: Labs from last 24 hours 05/29/23 04:48 WBC 4.7 RBC 3.14 L Hgb 9.2 L Hct 28.5 L MCV 90.8 MCH 29.3 MCHC 32.3 RDW 15.7 H Plt Count 232 MPV 9.7 Immature Gran % (Auto) 0.2 Neut % (Auto) 53.1 Lymph % (Auto) 37.3 Wheeler % (Auto) 8.4 Eos % (Auto) 0.4 Baso % (Auto) 0.6 Lymph # (Auto) 1.77 Wheeler # (Auto) 0.4 Eos # (Auto) 0.0 Baso # (Auto) 0.0 Abs Immat Gran (auto) 0.01 Absolute Neuts (auto) 2.5 Absolute Nucleated RBC 0.0 Nucleated RBC % 0.0 Platelet Estimate Adequate Poikilocytosis 1+ Anisocytosis 1+ Schistocytes Rare Sodium 129 L Potassium 4.0 Chloride 97 L Carbon Dioxide 25 Anion Gap 7 L BUN 13 Creatinine 0.60 L Estim Creat Clear Calc 91 Estimated GFR > 60 Glucose 107 Calcium 9.5 Magnesium 2.0 Total Bilirubin 0.5 AST 25 ALT 12 Alkaline Phosphatase 104 Total Protein 8.0 Albumin 4.0 Imaging Radiologist's impression: ITS Impressions Chest X-Ray 05/25/23 22:19 IMPRESSION: No acute cardiopulmonary process. Extensive osteosclerotic metastatic disease. Discharge Plan Discharge Attending physician on discharge: Conrad Khan Discharging Clinician: Conrad Khan Anticipated Discharge Date/Time: 05/29/23 15:32 Patient Disposition: Home Health Service Activity: as tolerated Diet: re
[2023-05-31 18:48] LABS: PSA, Free >17.00 ng/mL; PSA, Total 108.5 ng/mL (<=4.0)
== END 2023-05-29 18:50 | disposition home health service (06) | DRG 421 ==
LOC: ANHED 23:55 → ANH2MED 05-26 07:31
PROVIDERS: Preventive Medicine Aerospace Medicine; Admitting Provider Internal Medicine; Emergency Provider Student in an Organized Health Care Education/Training Program; Visit Provider Internal Medicine
DX: R62.7 Adult failure to thrive (principal); E43 Unspecified severe protein-calorie malnutrition; C79.51 Secondary malignant neoplasm of bone; E87.1 Hypo-osmolality and hyponatremia; E83.42 Hypomagnesemia; K59.00 Constipation, unspecified; Z85.46 Personal history of malignant neoplasm of prostate; Z90.79 Acquired absence of other genital organ(s); Z91.148 Patient's other noncompliance with medication regimen for other reason; Z68.20 Body mass index [BMI] 20.0-20.9, adult
CPT/HCPCS: 36415; 71045; 80053; 81001; 82948; 83735; 84153; 84154; 84443; 84484; 85025; 93005; 96361; 96365; 96366; 96375; 97110; 97161; 97165; 97530; 99285; A9270; G0378; G0379; J2405; J3475; J7120

== ENCOUNTER 2023-06-09 14:50 | Emergency (ER) | payer OTHER, SELFPAY ==
[2023-06-09] VITALS (7 sets, daily range): BP systolic 113–132; BP diastolic 77–91; PULSE 86; RESP 18; TEMP 36.7; O2SAT 100
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
[2023-06-09 15:34] LABS: Basophils Percent Auto 0.6 % (0.2-1.2); Eosinophils Percent Auto 0.3 % (0-4.4); Hematocrit 29.8 % (42.0-52.0); Hemoglobin 9.6 g/dL (14.0-18.0); Immature Granulocyte Absolute 0.02 K/mm3 (0.00-0.031); Immature Granulocyte Percent A 0.3 % (0-0.5); Lymphocytes Absolute Auto 1.83 K/mm3 (0.9-3.2); Lymphocytes Percent Auto 27.6 % (18.3-44.2); Mean Corpuscular HGB Conc 32.2 g/dl (32-36); Mean Corpuscular Hemoglobin 28.2 pg (26-34); Mean Corpuscular Volume 87.6 fl (80-100); Mean Platelet Volume 9.7 fl (7.4-10.4); Monocytes Absolute Auto 0.6 K/mm3 (0.1-0.6); Monocytes Percent Auto 8.9 % (2.6-8.5); Neutrophils Absolute Auto 4.1 K/mm3 (1.3-6.7); Neutrophils Percent Auto 62.3 % (45.5-73.1); Platelet Count Result 376 k/mm3 (150-375); Red Cell Distribution Width 15.9 % (11.5-14.5); White Blood Count 6.6 K/mm3 (4.5-10.0)
[2023-06-09 15:47] LABS: Alanine Aminotransferase 19 U/L (6-50); Albumin Level 4.3 g/dL (3.5-5.1); Alkaline Phosphatase 126 U/L (38-126); Anion Gap 13 mmol/L (8-16); Aspartate Amino Transferase 31 U/L (17-59); Bilirubin,Total 0.5 mg/dL (0.2-1.3); Blood Urea Nitrogen 21 mg/dL (9-20); Calcium 9.7 mg/dL (8.4-10.2); Carbon Dioxide 27 mmol/L (22-30); Chloride 93 mmol/L (98-107); Estimated CRCL calculation 65 ml/min; Estimated Glomerular Filt Rate > 60; Glucose 133 mg/dL (65-110); Potassium 3.3 mmol/L (3.4-5.0); Sodium 133 mmol/L (137-145)
[2023-06-09] MEDS: ONDANSETRON INJ 4 MG/2 ML VIAL IV PUSH (15:57)
[2023-06-09] MEDS: SODIUM CHLORIDE 0.9% IV 1,000 ML 999 ML IV CONT (15:57)
[2023-06-09] MEDS: HYDROmorphone HCL INJ (*CRX) 1 MG/ML SYR 0.5 MG IV PUSH (15:58)
[2023-06-09 16:04] LABS: Appearance Urine Clear (Clear); Bacteria Urine None Seen /hpf; Bilirubin Urine Negative (Negative); Blood Urine Negative (Negative); Color Urine Dark Yellow (Yellow); Glucose Urine UA Negative (Negative); Ketones Urine Trace mg/dL (Negative); Leukocyte Esterase Ur Negative LEU/UL (Negative); Need Manual Microscopic Reviewed; Nitrate Urine Negative (Negative); Non Pathogenic Casts >20; Protein Urine 2+ mg/dL (Negative); RBC Urine 0-2 /hpf (0-2); Specific Grav Ur 1.034 (1.001-1.035); Squamous Epithelial Cell Urine None seen /hpf (Few); WBC Urine 0-5 /hpf
[2023-06-09 16:05] LABS: Add Urine Microscopic? YES
== END 2023-06-09 19:09 | disposition home or self-care (01) ==
PROVIDERS: Emergency Provider Emergency Medicine
DX: C79.51 Secondary malignant neoplasm of bone (principal); R52 Pain, unspecified; Z76.0 Encounter for issue of repeat prescription
CPT/HCPCS: 36415; 80053; 81001; 85025; 96361; 96374; 96375; 99284; J1170; J2405; J7030